=== PATIENT | female | born 1995 | race Caucasian/White ===

== ENCOUNTER 2023-03-28 08:00 | Outpatient (CLI) | payer OTHER ==
[2023-03-28 12:49] LABS: BILIRUBIN,URINE NEGATIVE (NEGATIVE); GLUCOSE, URINE (UA) NEGATIVE (NEGATIVE); KETONES,URINE (UA) NEGATIVE (NEGATIVE); LEUKOCYTE ESTERASE, URINE TRACE (NEGATIVE); NITRITE,URINE NEGATIVE (NEGATIVE); OCCULT BLOOD,URINE NEGATIVE (NEGATIVE); PH,URINE 5.5 PH (5.0-7.5); PROTEIN,URINE NEGATIVE (NEGATIVE); UROBILINOGEN,URINE 1 (NORMAL) E.U./dL (NORMAL)
[2023-03-28 12:59] LABS: CLARITY,URINE CLOUDY (CLEAR)
[2023-03-28 13:00] LABS: BACTERIA,URINE Many /HPF (None Seen); RBC,URINE 0-5 /HPF (0-5); SQUAMOUS EPITHELIAL CELL,UR RARE Squamous (<= Few); WBC,URINE 0-3 /HPF (0-5)
== END 2023-03-28 23:59 | disposition home or self-care (01) ==
LOC: LAB.WC 08:00
PROVIDERS: ATTEND Obstetrics & Gynecology
DX: Z34.90 Encounter for supervision of normal pregnancy, unspecified, unspecified trimester (principal)
CPT/HCPCS: 81001; 87086

== ENCOUNTER 2023-04-01 13:57 | Outpatient (CLI) | payer OTHER ==
[2023-04-01 14:45] LABS: BASOPHILS % (AUTO) 0.2 %; EOSINOPHILS # (AUTO) 0.1 10^3/uL (0.0-0.7); EOSINOPHILS % (AUTO) 0.9 %; HCT - HEMATOCRIT 38.5 % (37.0-47.0); HGB - HEMOGLOBIN 13.3 g/dL (12.0-16.0); LYMPHOCYTES # (AUTO) 1.9 10^3/uL (1.5-3.5); LYMPHOCYTES % (AUTO) 23.1 %; MEAN CORPUSCULAR HEMOGLOBIN 28.7 pg (27.0-31.0); MEAN CORPUSCULAR HGB CONC 34.5 g/dL (32.0-36.0); MEAN CORPUSCULAR VOLUME 83.2 fL (81.0-99.0); MEAN PLATELET VOLUME 10.5 fL (7.9-10.8); MONOCYTES # (AUTO) 0.4 10^3/uL (0.0-1.0); MONOCYTES % (AUTO) 4.8 %; NEUTROPHILS # (AUTO) 5.8 10^3/uL (1.5-6.6); NEUTROPHILS % (AUTO) 70.5 %; PLT - PLATELET COUNT 266 10^3/uL (130-450); RED BLOOD COUNT 4.63 10^6/uL (4.20-5.40); RED CELL DISTRIBUTION WIDTH 13.8 % (12.0-15.0); WHITE BLOOD COUNT 8.2 x10^3/uL (4.8-10.8)
--- NOTE | 2023-04-01 16:09 | Ultrasound Report ---
PROCEDURE: OB First Trimester INDICATIONS: POSITIVE TEST OUTSIDE/PRIOR DATING DATA: Last menstrual period (LMP): 01/17/2023. LMP-based estimated date of delivery (LOULOU): 10/24/2023. First dating scan (date and location): Today 04/01/2023. Estimated date of delivery (LOULOU) from first dating scan: 10/22/2023. TECHNIQUE: Real-time scanning was performed of the fetus and maternal pelvic organs, with image documentation. COMPARISON: None FINDINGS: Heart rate is 169 bpm. [place]-rump length is 4 cm. Ultrasound age is 10 weeks and 6 days. Adnexal stru ctures within normal limits. IMPRESSION: Living intrauterine gestation at an ultrasound age of 10 weeks and 6 days, concordant with reported L MP. Reviewed by: Ian Ryan MD on 04/01/2023 4:08 PM PDT Approved by: Ian Ryan MD on 04/01/2023 4:08 PM PDT Station ID: [id number]
[2023-04-02 03:10] LABS: HBsAG SCREEN Negative (Negative); HCV AB Non Reactive (Non Reactive); HIV SCREEN 4TH GENERATION Non Reactive (Non Reactive)
[2023-04-02 08:10] LABS: RPR Non Reactive (Non Reactive)
[2023-04-02 12:09] LABS: VARICELLA-ZOSTER AB IGG 554 index (Immune >165)
== END 2023-04-01 13:58 | disposition home or self-care (01) ==
LOC: DI 13:57
PROVIDERS: ATTEND Obstetrics & Gynecology
DX: Z34.91 Encounter for supervision of normal pregnancy, unspecified, first trimester (principal)
CPT/HCPCS: 36415; 85025; 86592; 86762; 86787; 86803; 86850; 86900; 86901; 87340; 87389

== ENCOUNTER 2023-04-15 08:00 | Outpatient (CLI) | payer OTHER ==
[2023-04-15 19:12] LABS: CHLAMYDIA TRACHOMATIS DNA NEGATIVE (NEGATIVE); NEISSERIA GONORRHOEAE DNA NEGATIVE (NEGATIVE); TRICHOMONAS VAGINALIS DNA NEGATIVE (NEGATIVE)
== END 2023-04-15 23:59 | disposition home or self-care (01) ==
LOC: LAB.WC 08:00
PROVIDERS: ATTEND Obstetrics & Gynecology
DX: Z11.3 Encounter for screening for infections with a predominantly sexual mode of transmission (principal)
CPT/HCPCS: 87491; 87591; 87661

== ENCOUNTER 2023-04-24 09:46 | Outpatient (CLI) | payer OTHER ==
[2023-04-24 10:19] LABS: ALBUMIN/GLOBULIN RATIO 1.3 (1.0-2.2); BILIRUBIN,TOTAL 0.4 mg/dL (0.2-1.0); CALCIUM 9.3 mg/dL (8.5-10.3); CREATININE 0.6 mg/dL (0.6-1.3); POTASSIUM 4.1 mmol/L (3.5-4.5); TOTAL PROTEIN 7.2 g/dL (6.4-8.9); URIC ACID 3.7 mg/dL (2.3-6.6)
[2023-04-24 10:20] LABS: CREATININE,URINE 265.8 mg/dL; PROTEIN/CREATININE RATIO,URINE 0.1 (<=0.2)
[2023-04-24 10:39] LABS: FERRITIN 27.9 ng/mL (11.0-306.8)
== END 2023-04-24 09:47 | disposition home or self-care (01) ==
LOC: LAB 09:46
PROVIDERS: ATTEND Obstetrics & Gynecology
DX: O99.011 Anemia complicating pregnancy, first trimester (principal); Z87.59 Personal history of other complications of pregnancy, childbirth and the puerperium; O99.210 Obesity complicating pregnancy, unspecified trimester
CPT/HCPCS: 36415; 80053; 82570; 82728; 84156; 84550

== ENCOUNTER 2023-04-29 02:23 | Observation (INO) | payer OTHER ==
--- NOTE | 2023-04-29 03:15 | ED Physician Documentation ---
PD HPI ABD PAIN - Stated complaint Stated Complaint: FEMALE - Chief complaint Chief Complaint: Abd Pain - History obtained from History obtained from: Patient - Additional information Additional information: HPI from patient. Patient c/o upper abdominal pain that woke her from sleep at approximately 1 AM this morning. She says she only had one similar episode in the past, few weeks ago but brief and self-limited and thus did not seek medical attention. This pain is RUQ and epigastric, radiates to back. Nausea but no vomiting. There are no ameliorating nor exacerbating factors. Patient is 15 weeks ; has had US in this showing single living IUP 10w6d (04/01/23). Denies vaginal bleeding, denies pelvic pain/cramping. Review of Systems Constitutional: denies: Fever, Chills, Sweats Cardiac: reports: Reviewed and negative Respiratory: reports: Reviewed and negative GI: reports: Abdominal Pain, Nausea. denies: Vomiting, Constipation, Diarrhea : reports: Now EGA (15 weeks). denies: Dysuria, Frequency, Vaginal bleeding Musculoskeletal: reports: Back pain (anterior abdominal pain radiates to back (though not back pain per se)) PD PAST MEDICAL HISTORY - Past Medical History Past Medical History: No Cardiovascular: Hypertension - Past Surgical History Past Surgical History: Yes HEENT: Tonsil/Adenoidectomy - Present Medications Home Medications: Ambulatory Orders Medication Instructions Recorded Confirmed Ondansetron HCl 4 mg PO PRN 04/29/23 - Allergies Allergies/Adverse Reactions: Allergies Allergy/AdvReac Type Severity Reaction Status Date / Time No Known Drug Allergies Allergy Verified 04/29/23 02:41 PD ED PE NORMAL - Vitals Vital signs reviewed: Yes - General General: Alert and oriented X 3, Well developed/nourished, Other (appears to be in obvious moderate painful distress) - HEENT HEENT: Moist mucous membranes - Neck Neck: Supple, no meningeal sign - Cardiac Cardiac: RRR, No murmur - Respiratory Respiratory: No respiratory distress, Clear bilaterally - Abdomen Abdomen: Soft - Back Back: No CVA TTP - Derm Derm: Normal color, Warm and dry PD ED PE EXPANDED - Abdomen Abdomen: Tender to palpation (RUQ and epigastrium without rebound or guarding) Results - Vitals Vitals: Vital Signs - 24 hr 04/29/23 04/29/23 04/29/23 02:35 03:00 03:24 Temperature 36.6 C Heart Rate 102 H 91 Respiratory 32 H 24 24 Rate Blood Pressure 127/79 98/54 L O2 Saturation 100 94 96 04/29/23 04/29/23 04/29/23 04:30 05:00 05:30 Temperature Heart Rate 84 76 81 Respiratory 26 H 26 H 24 Rate Blood Pressure 108/66 105/69 105/69 O2 Saturation 95 97 96 04/29/23 06:30 Temperature Heart Rate 78 Respiratory 28 H Rate Blood Pressure 102/68 O2 Saturation 94 Oxygen O2 Source Room air - Labs Labs: Laboratory Tests 04/29/23 04/29/23 04/29/23 03:37 03:37 05:10 WBC 12.1 H RBC 4.40 Hgb 12.4 Hct 37.6 MCV 85.5 MCH 28.2 MCHC 33.0 RDW 14.1 Plt Count 247 MPV 10.5 Neut # (Auto) 9.7 H Lymph # (Auto) 1.8 [place] # (Auto) 0.6 Eos # (Auto) 0.1 Baso # (Auto) 0.0 Absolute Nucleated RBC 0.00 Nucleated RBC % 0.0 Sodium 134 L Potassium 3.6 Chloride 103 Carbon Dioxide 25 Anion Gap 6.0 BUN 5 L Creatinine 0.5 L Estimated GFR (MDRD) 149 Glucose 125 H Calcium 9.2 Total Bilirubin 0.6 AST 69 H ALT 25 Alkaline Phosphatase 99 Total Protein 6.8 Albumin 3.8 Globulin 3.0 Albumin/Globulin Ratio 1.3 Lipase 206 H Urine Color YELLOW Urine Clarity CLEAR Urine pH 6.0 Ur Specific [place] 1.015 Urine Protein NEGATIVE Urine Glucose (UA) NEGATIVE Urine Ketones NEGATIVE Urine Occult Blood NEGATIVE Urine Nitrite NEGATIVE Urine Bilirubin NEGATIVE Urine Urobilinogen 2 H Ur Leukocyte Esterase NEGATIVE Ur Microscopic Review NOT INDICATED Urine Culture Comments NOT INDICATED PD Medical Decision Making - ED course Complexity details: reviewed results, re-evaluated patient, considered differential, d/w patient ED course: Mild leukocytosis on CBC (WBC 12.1). Normal LFTs except minimally elevated AST (69). Lipase is notably elevated (206). She is given 4mg IV morphine sulfate, 1 liter NS, and 4mg IV zofran; this resulted in improvement in symptoms (per patient as well as appearance), but pain gradually returned and thus given another dose of 4mg IV morphine sulfate. US of RUQ is ordered but will not be available until after end of my shift and thus care of patient is turned over to oncoming ED physician (Dr. Dominique) pending results and reevaluation. Departure - Departure Forms: PCP List
[2023-04-29] MEDS ORDERED: ONDANSETRON 4 MG/2 ML VIAL IVP STA (03:27)
[2023-04-29] MEDS ORDERED: MORPHINE 2 MG/ML CARPUJECT IVP STA ×3 (03:27→08:17)
[2023-04-29 03:44] LABS: BASOPHILS % (AUTO) 0.2 %; EOSINOPHILS # (AUTO) 0.1 10^3/uL (0.0-0.7); EOSINOPHILS % (AUTO) 0.6 %; HCT - HEMATOCRIT 37.6 % (37.0-47.0); HGB - HEMOGLOBIN 12.4 g/dL (12.0-16.0); LYMPHOCYTES # (AUTO) 1.8 10^3/uL (1.5-3.5); LYMPHOCYTES % (AUTO) 14.6 %; MEAN CORPUSCULAR HEMOGLOBIN 28.2 pg (27.0-31.0); MEAN CORPUSCULAR VOLUME 85.5 fL (81.0-99.0); MEAN PLATELET VOLUME 10.5 fL (7.9-10.8); MONOCYTES # (AUTO) 0.6 10^3/uL (0.0-1.0); MONOCYTES % (AUTO) 4.7 %; NEUTROPHILS # (AUTO) 9.7 10^3/uL (1.5-6.6); NEUTROPHILS % (AUTO) 79.6 %; PLT - PLATELET COUNT 247 10^3/uL (130-450); RED CELL DISTRIBUTION WIDTH 14.1 % (12.0-15.0); WHITE BLOOD COUNT 12.1 x10^3/uL (4.8-10.8)
[2023-04-29 03:58] LABS: ALBUMIN 3.8 g/dL (3.2-5.5); ALBUMIN/GLOBULIN RATIO 1.3 (1.0-2.2); BILIRUBIN,TOTAL 0.6 mg/dL (0.2-1.0); CALCIUM 9.2 mg/dL (8.5-10.3); CREATININE 0.5 mg/dL (0.6-1.3); POTASSIUM 3.6 mmol/L (3.5-4.5); TOTAL PROTEIN 6.8 g/dL (6.4-8.9)
[2023-04-29] MEDS ORDERED: MORPHINE 2 MG/ML CARPUJECT ONE (04:12)
[2023-04-29] MEDS ORDERED: SODIUM CHLORIDE 0.9% 1,000 ML IV STA (04:16)
[2023-04-29 05:21] LABS: BILIRUBIN,URINE NEGATIVE (NEGATIVE); GLUCOSE, URINE (UA) NEGATIVE (NEGATIVE); KETONES,URINE (UA) NEGATIVE (NEGATIVE); LEUKOCYTE ESTERASE, URINE NEGATIVE (NEGATIVE); NITRITE,URINE NEGATIVE (NEGATIVE); OCCULT BLOOD,URINE NEGATIVE (NEGATIVE); PROTEIN,URINE NEGATIVE (NEGATIVE); UROBILINOGEN,URINE 2 E.U./dL (NORMAL)
[2023-04-29 05:23] LABS: CLARITY,URINE CLEAR (CLEAR)
[2023-04-29] MEDS ORDERED: PANTOPRAZOLE 40 MG VIAL IVP STA (08:43)
[2023-04-29] MEDS ORDERED: GI COCKTAIL 120 ML BOTTLE PO PRN (08:44)
--- NOTE | 2023-04-29 09:06 | Ultrasound Report ---
PROCEDURE: Abdomen Limited INDICATIONS: RUQ pain TECHNIQUE: Real-time focused scanning was performed of the abdomen, with image documentation. COMPARISONS: OB ultrasound 04/01/2023 FINDINGS: Liver: Liver is normal in size and homogeneous in echotexture. Gallbladder: Sludge versus small stones within the gallbladder. No gallbladder wall thickening or per icholecystic fluid. Negative sonographic Lee's, however patient is on pain medication. Biliary ducts: Intrahepatic bile ducts are non-dilated. Extrahepatic bile duct caliber measures 5.4 mm. Normal is 6-7 mm or less in diameter, or 10 mm or less post-cholecystectomy. Pancreas: Visualized portions of the pancreas are sonographically normal. Right kidney: Normal in size and echotexture. Right kidney measures 10.1 cm long. No hydronephrosis or nephrolithiasis. No solid masses. No complex renal cystic lesions which require follow-up. Aorta: Visualized proximal aorta is normal in caliber at less than 3 cm. Single live intrauterine with heart rate of 137 bpm. IMPRESSION: 1.Sludge versus small stones within the gallbladder without gallbladder wall thickening or pericholec ystic fluid. Negative sonographic Lee's sign, however patient was premedicated. 2.Single live intrauterine . Reviewed by: Dennis Augustin MD on 04/29/2023 9:04 AM PDT Approved by: Dennis Augustin MD on 04/29/2023 9:04 AM PDT Station ID: [id number]
[2023-04-29] MEDS ORDERED: ONDANSETRON 4 MG/2 ML VIAL IVP PRN (09:22)
[2023-04-29] MEDS ORDERED: SODIUM CHLORIDE FLUSH 0.9% 10 ML SYRINGE IVP PRN (09:22)
--- NOTE | 2023-04-29 09:43 | HISTORY & PHYSICAL EXAMINATION ---
Chief Complaint - Chief Complaint Chief Complaint: Abdominal pain History of Present Illness - Admitted From Admitted From:: ED - History of Present Illness HPI Comment/Other: Neville was awakened at 0100 today with mid-epigastric pain, constant, severe, non-radiation with associated nausea. She took some Tylenol but there was no relief. She was brought to the ED and was found to have a slightly elevated Lipase. US confirmed sludge and tiny gallstones. Her pain was poorly managed with IV morphine and I was asked to admit her for pain control of her presumed gallstone pancreatitis. Rad is 15 months and is followed by our OB service. History - Past Medical History Cardiovascular: reports: Hypertension MRSA Hx?: No - Past Surgical History HEENT: reports: Tonsil/Adenoidectomy - Family & Social History Living arrangement: At home - Substance History Use: Uses substance without health or social issues: NONE Abuse: Recurrent use of substance despite neg consequences: NONE - POLST Patient has POLST: No POLST Status: Full Code Meds/Allgy - Home Medications Home Medications: Ambulatory Orders Medication Instructions Recorded Confirmed Ondansetron HCl 4 mg PO PRN 04/29/23 - Allergies Allergies/Adverse Reactions: Allergies Allergy/AdvReac Type Severity Reaction Status Date / Time No Known Drug Allergies Allergy Verified 04/29/23 02:41 Review of Systems - Gastrointestinal Gastrointestinal: reports: Abdominal pain, Nausea Exam - Vital Signs Reviewed Vital Signs: Yes Vital Signs: Vital Signs x48h Temp Pulse Resp BP Pulse Ox 04/29/23 09:00 208.6 F H 87 16 104/77 98 04/29/23 06:30 78 28 H 102/68 94 04/29/23 05:30 81 24 105/69 96 04/29/23 05:00 76 26 H 105/69 97 04/29/23 04:30 84 26 H 108/66 95 04/29/23 03:24 24 96 04/29/23 03:00 91 24 98/54 L 94 04/29/23 02:35 97.8 F 102 H 32 H 127/79 100 - Physical Exam General Appearance: positive: Alert, Mild distress Eyes Bilateral: positive: Normal inspection, No scleral icterus ENT: positive: ENT inspection nml, Pharynx nml Neck: positive: Nml inspection, Thyroid nml, Trachea midline Respiratory: positive: No respiratory distress, Breath sounds nml Cardiovascular: positive: Regular rate & rhythm, No murmur Peripheral Pulses: positive: 2+ Abdomen: positive: Nml bowel sounds, Other (Mild epigastric tenderness to palpation; minimal distension) Skin: positive: Color nml, No rash, Warm Extremities: positive: Non-tender Neurologic/Psychiatric: positive: Oriented x3 Conclusion/Plan - Lab Results Fish Bones: 04/29/23 03:37 04/29/23 03:37 - Other Other Results/Comments: Images: US - Non-distended or inflamed gallbladder with sludge and tiny stones. CBD 5.4 mm Assessment: 1) Abdominal pain, probably due to gallstone pancreatitis; Possible gastritis 2) , 15 weeks 3) Headaches Plan: 1) Admit for pain control and monitoring of her serum lipase 2) NPO except sips and chips 3) Possible lap [place] in am once lipase elevation decreases Tad Zarate MD General Surgery Service
--- NOTE | 2023-04-29 09:46 | ED Physician Documentation ---
ED Addendum - Addendum Addendum: 04/29/23 09: Patient 28-year-old female presenting to the emergency department with e pigastric and right upper quadrant abdominal pain in setting of early Second trimester . Labs reviewed demonstrate mild elevation in lipase, AST and urobilinogen. No other leukocytosis. Patient remains in persistent pain with multiple request for pain medication. Ultrasonography positive for gallstones versus biliary sludge but no pericholecystic fluid, gallbladder wall thickening or other indication of acute cholecystitis. Care discussed with general surgery. Given Protonix and GI cocktail. Given persistent pain presentation is highly concerning forGallstone pancreatitis. Graciously general surgery agrees to admit the patient for further evaluation and treatment. 04/29/23 09:47 04/29/23 17:46
[2023-04-29] MEDS: LACTATED RINGERS 1,000 ML IV SCH ×2 (10:36→19:04)
[2023-04-29] MEDS: HYDROmorphone 0.5 MG/0.5 ML SYRINGE IVP PRN ×4 (11:15→18:12)
--- NOTE | 2023-04-29 12:25 | PHARMACY PROGRESS NOTE ---
- Best Possible Medication History Admit Date and Time: 04/29/23921 Processed by: Pharmacy Medication History completed: Yes Patient Interview: Completed Secondary Source(s): Pharmacy records As the person ultimately responsible for medication therapy, providers are able to order a medication from an existing home medication list in [facility] via the "Reconcile Routine" prior to Confirmation of that medication by application support lead. Such practice is discouraged except when the physician, in their clinical judgment, deems that a medical need exists for a medication without regard to previous use.
--- NOTE | 2023-04-29 14:42 | PROVIDER PROGRESS NOTE ---
Progress Note General Surgery Progress Note Neville is much more comfortable. She is tolerating ice chips and her pain is under better control. I discussed with her the diagnosis of gallstone pancreatitis and will explain to her the surgical procedure later this afternoon. Surgery tomorrow is a possibility if her pancreatitis continues to resolve. Tad Zarate MD General Surgery Service
--- NOTE | 2023-04-29 15:26 | PROVIDER PROGRESS NOTE ---
Progress Note General Surgery Progress Note Neville has clinical, lap and US evidence of gallstone pancreatitis. She is 15 weeks . Her symptoms have improved with medical management and I have recommended cholecystectomy to prevent future episodes of pancreatitis which would be of risk to her and her unborn child. She will have heart tones recorded immediately prior to the procedure which is tentatively scheduled for tomorrow mid-morning. Consent Neville Gonzalez has been counseled for the procedure (Laparoscopic cholecystectomy, possible open cholecystectomy under GETA), it's indications, risks, benefits and expected outcome as well as alternative therapies. We specifically discussed risks to her and her associated with anesthesia, bleeding, infection, injury to surrounding structures which may require additional surgery, and the possible need for conversion to an open procedure. We also discussed the possible need for a blood transfusion with its risks and benefits. Neville understands, agrees, and consents to the proposed operative strategy and requests that we proceed with the procedure as outlined in our discussion. Tad Zarate MD General Surgery Service
[2023-04-29] MEDS: SODIUM CHLORIDE FLUSH 0.9% 10 ML SYRINGE IVP SCH ×2 (16:14→23:58)
--- NOTE | 2023-04-29 18:21 | PROVIDER PROGRESS NOTE ---
Progress Note General Surgery Progress Note I was called by the nursing staff because Neville complains that the IV Dilaudid does not last long enough to control her abdominal pain. In addition, she becomes nauseated when it is administered but the Zofran doesn't work well, either. She declines to take Reglan or Phenergan. As Compazine may have teratogenics effect on the unborn baby, I do not believe it is prudent to begin this anti-emetic. Perhaps by limiting her use of IV Dilaudid, we can avoid the associated nausea. Instead, for longer pain control, I have ordered Oxycodone, 5 mg PO Q hrs prn to compliment her Acetaminophen. I can find no studies to indicate that this will have adverse effects regarding the . If this is not effective, I will consider adding Ketorolac. This drug can cause premature closure of the ductus arterious (along with other adverse effects of ) after 20 weeks of gestation so there is still a window of safety in which it could be used. Tad Zarate MD General Surgery Service
[2023-04-29] MEDS: oxyCODONE 5 MG TABLET PO PRN (19:03)
[2023-04-29] MEDS: ACETAMINOPHEN 325 MG TABLET PO PRN (19:04)
[2023-04-30] MEDS: oxyCODONE 5 MG TABLET PO PRN ×3 (02:18→16:03)
[2023-04-30] MEDS: LACTATED RINGERS 1,000 ML IV SCH ×3 (02:21→17:57)
[2023-04-30 05:15] LABS: BASOPHILS % (AUTO) 0.3 %; EOSINOPHILS # (AUTO) 0.1 10^3/uL (0.0-0.7); HGB - HEMOGLOBIN 11.2 g/dL (12.0-16.0); LYMPHOCYTES % (AUTO) 29.5 %; MEAN CORPUSCULAR HEMOGLOBIN 28.6 pg (27.0-31.0); MEAN CORPUSCULAR HGB CONC 32.9 g/dL (32.0-36.0); MEAN CORPUSCULAR VOLUME 86.7 fL (81.0-99.0); MEAN PLATELET VOLUME 10.8 fL (7.9-10.8); MONOCYTES # (AUTO) 0.4 10^3/uL (0.0-1.0); MONOCYTES % (AUTO) 5.8 %; NEUTROPHILS # (AUTO) 4.3 10^3/uL (1.5-6.6); NEUTROPHILS % (AUTO) 62.8 %; PLT - PLATELET COUNT 212 10^3/uL (130-450); RED BLOOD COUNT 3.92 10^6/uL (4.20-5.40); RED CELL DISTRIBUTION WIDTH 14.4 % (12.0-15.0); WHITE BLOOD COUNT 6.9 x10^3/uL (4.8-10.8)
[2023-04-30 05:27] LABS: POTASSIUM 3.5 mmol/L (3.5-4.5)
[2023-04-30 05:28] LABS: ALBUMIN 3.3 g/dL (3.2-5.5); ALBUMIN/GLOBULIN RATIO 1.3 (1.0-2.2); BILIRUBIN,TOTAL 0.5 mg/dL (0.2-1.0); CALCIUM 8.7 mg/dL (8.5-10.3); CREATININE 0.5 mg/dL (0.6-1.3); TOTAL PROTEIN 5.8 g/dL (6.4-8.9)
--- NOTE | 2023-04-30 07:22 | PROVIDER PROGRESS NOTE ---
Progress Note General Surgery Progress Note S: Feels a bit better; Sometimes nauseated; Pain under good control O: VSS afeb; Lungs clear; Heart NSR; Abd - soft, non-tender; Labs: WBC 6.9; H&H 11.2/39 Lipase 22 LFT's normal; T Bili normal A: Gallstone pancreatitis - resolved P: Laparoscopic cholecystectomy, possible open cholecystectomy today. Tad Zarate MD General Surgery Service
[2023-04-30] MEDS ORDERED: fentaNYL 100 MCG/2 ML VIAL ONE ×3 (10:58→13:51)
[2023-04-30] MEDS ORDERED: ROCURONIUM 50 MG/5 ML VIAL ONE ×2 (10:58→12:41)
[2023-04-30] MEDS ORDERED: PROPOFOL 200 MG/20 ML VIAL IVP ONE (10:58)
[2023-04-30] MEDS ORDERED: LIDOCAINE-PF 2% 10 ML AMP SUBQ ONE (10:58)
[2023-04-30] MEDS: ACETAMINOPHEN 325 MG TABLET PO PRN ×3 (11:29→23:29)
--- NOTE | 2023-04-30 11:38 | ANESTHESIA ---
Pre-Anesthesia VS, & Labs - Diagnosis acute cholecytitis, 2nd trimester - Procedure laparoscopic cholecystectomy Vital Signs: Temp Pulse Resp BP Pulse Ox O2 Flow Rate 36.9 C 87 16 94/61 99 04/30/23 11:20 04/30/23 11:20 04/30/23 11:20 04/30/23 11:20 04/30/23 11:20 Height: 5 ft 4 in Weight (kg): 110 kg Body Mass Index: 41.6 BMI Classification: Morbidly Obese - NPO >8 hours - Is Patient ?: Yes - Lab Results Current Lab Results: Laboratory Tests 04/30/23 04:44: Sodium 135, Potassium 3.5, Chloride 106, Carbon Dioxide 24, Anion Gap 5.0 L, BUN 3 L, Creatinine 0.5 L, Estimated GFR (MDRD) 149, Glucose 91, Calcium 8.7, Total Bilirubin 0.5, AST 34, ALT 27, Alkaline Phosphatase 99, Total Protein 5.8 L, Albumin 3.3, Globulin 2.5, Albumin/Globulin Ratio 1.3, Lipase 22 04/30/23 04:44: WBC 6.9, RBC 3.92 L, Hgb 11.2 L, Hct 34.0 L, MCV 86.7, MCH 28.6, MCHC 32.9, RDW 14.4, Plt Count 212, MPV 10.8, Neut # (Auto) 4.3, Lymph # (Auto) 2.0, [place] # (Auto) 0.4, Eos # (Auto) 0.1, Baso # (Auto) 0.0, Absolute Nucleated RBC 0.00, Nucleated RBC % 0.0 04/29/23 03:37: Sodium 134 L, Potassium 3.6, Chloride 103, Carbon Dioxide 25, Anion Gap 6.0, BUN 5 L, Creatinine 0.5 L, Estimated GFR (MDRD) 149, Glucose 125 H, Calcium 9.2, Total Bilirubin 0.6, AST 69 H, ALT 25, Alkaline Phosphatase 99, Total Protein 6.8, Albumin 3.8, Globulin 3.0, Albumin/Globulin Ratio 1.3, Lipase 206 H 04/29/23 03:37: WBC 12.1 H, RBC 4.40, Hgb 12.4, Hct 37.6, MCV 85.5, MCH 28.2, MCHC 33.0, RDW 14.1, Plt Count 247, MPV 10.5, Neut # (Auto) 9.7 H, Lymph # (Auto) 1.8, [place] # (Auto) 0.6, Eos # (Auto) 0.1, Baso # (Auto) 0.0, Absolute Nucleated RBC 0.00, Nucleated RBC % 0.0 Lab results reviewed: Yes Fish Bones: 04/30/23 04:44 04/30/23 04:44 Home Medications and Allergies Home Medications: Ambulatory Orders Aspirin EC [Ecotrin] 1 tab PO DAILY 04/29/23 NIFEdipine [Nifedipine ER] 1 tab PO DAILY 04/29/23 Ondansetron HCl 4 mg PO DAILY PRN 04/29/23 Pnv No.95/Ferrous Fum/Folic AC [ Tablet] 1 tab PO DAILY 04/29/23 Active Medications Acetaminophen (Acetaminophen 325 Mg Tablet) 650 mg PO Q4HR PRN PRN Reason: Pain 1 to 4, or Fever Last Admin: 04/30/23 11:29 Dose: 650 mg Hydromorphone HCl (Hydromorphone 0.5 Mg/0.5 Ml Syringe) 0.5 mg IVP Q2H PRN PRN Reason: Pain 8 to 10 Last Admin: 04/29/23 18:12 Dose: 0.5 mg Lactated Ringer's (Lr) 1,000 mls @ 125 mls/hr IV .Q8H JUNO Last Admin: 04/30/23 11:29 Dose: 125 mls/hr Multi-Ingredient Mouthwash/Gargle (Gi Cocktail 120 Ml Bottle) 30 ml PO Q4H PRN PRN Reason: Abdominal Pain Last Admin: 04/29/23 09:26 Dose: 30 ml Ondansetron HCl (Ondansetron 4 Mg/2 Ml Vial) 4 mg IVP Q6HR PRN PRN Reason: Nausea / Vomiting Last Admin: 04/29/23 13:54 Dose: 4 mg Oxycodone HCl (Oxycodone 5 Mg Tablet) 5 mg PO Q4HR PRN PRN Reason: Moderate Pain (Level 4-6) Last Admin: 04/30/23 10:29 Dose: 5 mg Sodium Chloride (Sodium Chloride Flush 0.9% 10 Ml Syringe) 10 ml IVP PRN PRN PRN Reason: NEEDED PER PROVIDER ORDERS Last Admin: 04/29/23 18:12 Dose: 10 ml Sodium Chloride (Sodium Chloride Flush 0.9% 10 Ml Syringe) 10 ml IVP 01 00,0900,1700 JUNO Last Admin: 04/29/23 23:58 Dose: Not Given Aspirin EC [Ecotrin] 1 tab PO DAILY 04/29/23 NIFEdipine [Nifedipine ER] 1 tab PO DAILY 04/29/23 Ondansetron HCl 4 mg PO DAILY PRN 04/29/23 Pnv No.95/Ferrous Fum/Folic AC [ Tablet] 1 tab PO DAILY 04/29/23 Allergies/Adverse Reactions: Allergies Allergy/AdvReac Type Severity Reaction Status Date / Time metoclopramide AdvReac Anxiety Verified 04/29/23 14:38 Anes History & Medical History - Anesthetic History Anesthesia Complications: reports: No previous complications Family history of Anesthesia Complications: Denies Family history of Malignant Hyperthermia: Denies - Medical History Cardiovascular: reports: Hypertension Pulmonary: reports: None Gastrointestinal: reports: None Urinary: reports: None Neuro: reports: Headaches Musculoskeletal: reports: None Endocrine/Autoimmune: reports: None Blood Disorders: reports: Anemia Skin: reports: Eczema, Rosacea Smoking Status: Never smoker - Surgical History Eyes Ears Nose Throat (EENT): reports: Tonsil/Adenoidectomy Exam General: Alert, Oriented x3, Cooperative Dental: WNL Mouth Openin Fingerbreadth Neck Mobility: Normal Mallampati classification: II Thyromental Distance: 4-6 cm Respiratory: Lungs clear, Normal breath sounds, No respiratory distress Cardiovascular: Regular rate Neurological: Normal speech Mental/Cognitive Status: Alert/Oriented X3, Normal for patient Cognitive Status: Within normal limits Plan Anesthesia Type: General Consent for Procedure(s) Verified and Reviewed: Yes Code Status: Attempt Resuscitation ASA classification: 2-Mild systemic disease Is this case an emergency?: No
[2023-04-30] MEDS ORDERED: BUPIVACAINE 0.25% PF 30 ML VIAL ONE (11:47)
[2023-04-30] MEDS ORDERED: LIDOCAINE 1%-EPI 1:100000 20 ML MDV ONE (11:47)
[2023-04-30] MEDS ORDERED: fentaNYL 100 MCG/2 ML VIAL IVP PRN (11:51)
[2023-04-30] MEDS ORDERED: NALOXONE 0.4 MG/ML VIAL IVP PRN (11:51)
[2023-04-30] MEDS ORDERED: ONDANSETRON 4 MG/2 ML VIAL IVP PRN (11:51)
[2023-04-30] MEDS ORDERED: ATROPINE ABBOJECT 1 MG/10 ML SYRINGE IVP PRN (11:51)
[2023-04-30] MEDS ORDERED: HYDROmorphone 0.5 MG/0.5 ML SYRINGE IVP PRN (11:51)
[2023-04-30] MEDS ORDERED: MORPHINE 2 MG/ML CARPUJECT IVP PRN (11:51)
[2023-04-30] MEDS ORDERED: ePHEDrine 50 MG/ML VIAL IVP PRN (11:51)
[2023-04-30] MEDS ORDERED: LACTATED RINGERS 1,000 ML IV SCH (12:00)
[2023-04-30] MEDS ORDERED: ceFAZolin 1 GM VIAL ONE (12:19)
[2023-04-30] MEDS ORDERED: ONDANSETRON 4 MG/2 ML VIAL ONE ×2 (12:28→13:51)
[2023-04-30] MEDS ORDERED: LIDOCAINE 1%-EPI 1:100000 20 ML MDV SUBQ ONE ×3 (12:35)
[2023-04-30] MEDS ORDERED: BUPIVACAINE 0.25% PF 30 ML VIAL SUBQ ONE ×3 (12:37)
[2023-04-30] MEDS ORDERED: GLYCOPYRROLATE 1 MG/5 ML VIAL ONE (13:15)
[2023-04-30] MEDS ORDERED: NEOSTIGMINE 1 MG/1 ML 10 ML MDV ONE (13:15)
[2023-04-30] MEDS ORDERED: LACTATED RINGERS 1,000 ML IV ONE (13:25)
[2023-04-30] MEDS ORDERED: SODIUM CHLORIDE FLUSH 0.9% 10 ML SYRINGE IVP PRN (13:37)
[2023-04-30] MEDS ORDERED: fentaNYL 100 MCG/2 ML VIAL IVP ONE (13:49)
--- NOTE | 2023-04-30 13:51 | OPERATIVE REPORT ---
Operative Report - General Admit Date: 04/29/23 - Other Other Information/Narrative: PROCEDURE DATE: 04/30/2023 PREOPERATIVE DIAGNOSIS: Ms. Gonzalez is a 28 year old female who is 15 weeks who has clinical, x-ray, and laboratory findings consistent with gallstone pancreatitis. The pancreatitis has resolved and she is being taken to the operating room for laparoscopic cholecystectomy, possible open cholecystectomy. POSTOPERATIVE DIAGNOSIS: Gallstone pancreatitis NAME OF PROCEDURE: Laparoscopic appendectomy (25129) SURGEON: Alexis Zarate MD, FACS FISCAL MANAGER SURGEON: None ANESTHESIA: General endotracheal. ESTIMATED BLOOD LOSS: 5 mL. DRAINS: None SPECIMEN: Gallbladder COMPLICATIONS None FINDINGS: Non-inflamed gallbladder DESCRIPTION OF OPERATION FOLLOWS: After consent for the procedure was obtained, the patient was brought to the operating room where in the supine position, Heart Tones were obtained using doppler ultrasound. General endotracheal anesthesia was administered. A surgical time-out was performed indicating the patient and the procedure to be performed. The abdomen was prepped with chloroprep and draped in a sterile fashion. Pneumoperitoneum was achieved through a subumbilical incision using a Fili can nula and an open technique. Under direct vision, a 10 mm non-cutting laparoscopic port was placed in the sub-xiphoid region and two 5 mm noncutting ports were placed in the right upper quadrant; one in the mid-clavicular line and one in the anterior axillary line. Each of the port sites were infiltrated with 1% Lidocaine with epinephrine in a 50/50 mix with 1/4% Marcaine mixture prior making the incisions. The patient was placed in the steep reverse Trendelenburg position and rolled to the left. Inspection of the right upper quadrant revealed the above noted findings. The gallbladder was grasped on the fundus and retracted superiorly and anteriorly. Adhesions between the gallbladder and omentum were gently teased off the anterior wall of the gallbladder and then the neck of the gallbladder was identified. The neck was grasped and retracted laterally. The cystic duct was identified as it coursed from the gallbladder toward the common duct. The cystic artery was similarly identified. The critical view was visualized and both cystic duct (3 clips) and cystic artery (2 clips) were clipped proximally and distally and transected. The gallbladder was then removed from the liver bed using electrocautery and brought out through the subxiphoid port using an endo-catch device. During the course of the gallbladder retraction, a small rent occurred in the fundus of the gallbladder and bile was spilled into the peritoneal cavity. No stones were lost in the abdominal cavity. The bile was irrigated and aspirated from the peritoneal cavity. Reinspection of the right upper quadrant revealed no evidence of bleeding or bile leakage from the previous dissection site. The right upper quadrant was irrigated with warm sterile saline. The irrigant was aspirated. A search was made for sponges, packs, instruments, and needles. None were found. The sponge, pack, instrument, and needle counts were relayed to me as being correct. The subxiphoid port was closed using a Stanislaw-Kesha device with 0-Vicryl suture. The pneumoperitoneum was the released. There was no evidence of bleeding from the laparoscopic port sleeve sites upon release of the pneumoperitoneum. The subumbilical incision was closed with 2-0 Vicryl for the linea alba. The skin of each of the port sites was closed with interrupted 4-0 Monocryl in a subcuticular fashion with Steri-Strips to reinforce the epidermis. Dressings were placed. The patient tolerated the procedure well and was brought to the recovery room with stable vital signs. heart tones were obtained using doppler ultrasound in the PACU
[2023-04-30] MEDS: SODIUM CHLORIDE FLUSH 0.9% 10 ML SYRINGE IVP SCH ×5 (14:57→23:32)
--- NOTE | 2023-04-30 16:34 | ANESTHESIA POST OP EVALUATION ---
Anesthesia Post Eval - Post Anesthesia Eval Vitals: Last Vital Signs Temp 36.3 C L 04/30/23 16:03 Pulse 91 04/30/23 16:03 Resp 18 04/30/23 16:03 BP 111/64 04/30/23 16:03 Pulse Ox 100 04/30/23 16:03 O2 Flow Rate CV Function Including HR & BP: Stable Pain Control: Satisfactory Nausea & Vomiting: Negative Mental Status: Baseline Respiratory Status: Airway Patent Hydration Status: Satisfactory Anesthesia Complications: None
[2023-05-01] MEDS: LACTATED RINGERS 1,000 ML IV SCH (02:08)
[2023-05-01 05:31] LABS: BASOPHILS % (AUTO) 0.4 %; EOSINOPHILS # (AUTO) 0.1 10^3/uL (0.0-0.7); EOSINOPHILS % (AUTO) 1.1 %; HCT - HEMATOCRIT 34.7 % (37.0-47.0); HGB - HEMOGLOBIN 11.7 g/dL (12.0-16.0); LYMPHOCYTES # (AUTO) 1.9 10^3/uL (1.5-3.5); LYMPHOCYTES % (AUTO) 23.6 %; MEAN CORPUSCULAR HEMOGLOBIN 29.1 pg (27.0-31.0); MEAN CORPUSCULAR HGB CONC 33.7 g/dL (32.0-36.0); MEAN CORPUSCULAR VOLUME 86.3 fL (81.0-99.0); MEAN PLATELET VOLUME 10.5 fL (7.9-10.8); MONOCYTES # (AUTO) 0.5 10^3/uL (0.0-1.0); NEUTROPHILS # (AUTO) 5.5 10^3/uL (1.5-6.6); NEUTROPHILS % (AUTO) 68.6 %; PLT - PLATELET COUNT 229 10^3/uL (130-450); RED BLOOD COUNT 4.02 10^6/uL (4.20-5.40); RED CELL DISTRIBUTION WIDTH 14.4 % (12.0-15.0)
[2023-05-01 05:48] LABS: ALBUMIN 3.3 g/dL (3.2-5.5); ALBUMIN/GLOBULIN RATIO 1.3 (1.0-2.2); BILIRUBIN,TOTAL 0.4 mg/dL (0.2-1.0); CALCIUM 8.9 mg/dL (8.5-10.3); CREATININE 0.5 mg/dL (0.6-1.3); POTASSIUM 3.7 mmol/L (3.5-4.5); TOTAL PROTEIN 5.8 g/dL (6.4-8.9)
--- NOTE | 2023-05-01 07:15 | PROVIDER PROGRESS NOTE ---
Progress Note General Surgery Progress Note Hospital Day # 3 - Gallstone pancreatitis POD # 1, Laparoscopic cholecystectomy ASSESSMENT: 1) S/P lap cholecystectomy for gallstone pancreatitis - progressing well and ready for discharge to home 2) IUP - no perioperative issues PLAN: 1) Discharge to home; FU surgery clinic in 7-10 days or sooner as needed 2) She wants only Tylenol for pain management <><><><><> PERTINENT INTERVAL ISSUES: None S: Feels much better; Minimal port site discomfort; Ambulatory OBJECTIVE: VS: T 97.5; P 90; BP 105/58; 100% RA EXAMINATION: MENTAL STATUS: AAO; Comfortable EYES: Pupils equal, round and reactive to light, sclera anicteric, EARS, NOSE, MOUTH, THROAT: Normal hearing, Oral mucous membranes moist and without lesions; NECK: No crepitus, lymphadenopathy, or thyromegaly LUNGS: Clear to auscultation without wheezing; No use of accessory muscles to breathe CARDIOVASCULAR: Heart-NSR without murmurs; ABD: Soft, non-tender, Port-sites clean and dry; + BS EXTREMITIES: No clubbing, cyanosis, infections SKIN: Anicteric; No rashes, lesions, ulcerations LABS: WBC 8; H&H 11.7/34.7; T Jame 0.1 CULTURES: N/A IMAGING: None today ANTIMICROBIALS: Prophylactic completed PAIN CONTROL: Dilaudid IV prn, Oxycodone PO prn, Acetaminophen VTEP: Chemical: None Mechanical: REBEKAH Zarate MD General Surgery Service
--- NOTE | 2023-05-01 07:27 | Discharge Plan ---
Discharge Plan Problem Reviewed?: Yes Disposition: Home, Self Care Condition: Good Prescriptions: Acetaminophen [Tylenol] 650 mg PO Q4HR PRN #120 tab PRN Reason: Pain 1 to 4, or Fever Diet: Regular Activity Restrictions: Activity as Tolerated Shower Restrictions: No Driving Restrictions: No Instruction Topics: Cholecystectomy Laparoscopic Health Concerns: Continue to follow-up with the OB clinic for your pre-amber care Assessment: No immediate post-procedure issues Additional Instructions or Follow Up instructions: Follow up in the General Surgery Clinic in 7-10 days or sooner as needed No Smoking: If you smoke, Please STOP! Call for help.
[2023-05-01 08:43] VITALS: BP 104/63; O2SAT 99
== END 2023-05-01 09:26 | disposition home or self-care (01) ==
LOC: ED 02:23 → MS2 09:22
PROVIDERS: ADMIT Surgery; ATTEND Surgery
PROC: 0DTJ4ZZ Resection of Appendix, Percutaneous Endoscopic Approach (ICD-10-PCS; principal; 2023-04-30 10:30)
DX: O99.612 Diseases of the digestive system complicating pregnancy, second trimester (principal); K80.10 Calculus of gallbladder with chronic cholecystitis without obstruction; K85.10 Biliary acute pancreatitis without necrosis or infection; Z3A.15 15 weeks gestation of pregnancy; O99.112 Other diseases of the blood and blood-forming organs and certain disorders involving the immune mechanism complicating pregnancy, second trimester; D72.829 Elevated white blood cell count, unspecified; O26.892 Other specified pregnancy related conditions, second trimester; R74.01 Elevation of levels of liver transaminase levels; O99.212 Obesity complicating pregnancy, second trimester; E66.01 Morbid (severe) obesity due to excess calories; O16.2 Unspecified maternal hypertension, second trimester; Z79.82 Long term (current) use of aspirin; Z79.899 Other long term (current) drug therapy
CPT/HCPCS: 36415; 44970; 76705; 80053; 81003; 83690; 85025; 96374; 96375; 96376; 99285; A9270; G0378; J1170; J7120; 81001; 87086

== ENCOUNTER 2023-05-28 08:00 | Outpatient (CLI) | payer OTHER ==
[2023-05-28 17:02] LABS: BILIRUBIN,URINE NEGATIVE (NEGATIVE); GLUCOSE, URINE (UA) NEGATIVE (NEGATIVE); KETONES,URINE (UA) NEGATIVE (NEGATIVE); LEUKOCYTE ESTERASE, URINE NEGATIVE (NEGATIVE); NITRITE,URINE NEGATIVE (NEGATIVE); OCCULT BLOOD,URINE NEGATIVE (NEGATIVE); PH,URINE 6.5 PH (5.0-7.5); PROTEIN,URINE NEGATIVE (NEGATIVE); UROBILINOGEN,URINE 1 (NORMAL) E.U./dL (NORMAL)
[2023-05-28 17:05] LABS: CLARITY,URINE CLEAR (CLEAR)
[2023-05-28 17:08] LABS: BACTERIA,URINE Rare /HPF (None Seen); RBC,URINE 0-5 /HPF (0-5); SQUAMOUS EPITHELIAL CELL,UR FEW Squamous (<= Few); WBC,URINE 0-3 /HPF (0-5)
[2023-05-28 20:06] LABS: BACTERIAL VAGINOSIS DNA NEGATIVE (NEGATIVE); CANDIDA GLABRATA DNA NEGATIVE (NEGATIVE); CANDIDA GROUP DNA NEGATIVE (NEGATIVE); CANDIDA KRUSEI DNA NEGATIVE (NEGATIVE); TRICHOMONAS VAGINALIS DNA NEGATIVE (NEGATIVE)
== END 2023-05-28 23:59 | disposition home or self-care (01) ==
LOC: LAB.WC 08:00
PROVIDERS: ATTEND Obstetrics & Gynecology
DX: N89.8 Other specified noninflammatory disorders of vagina (principal)
CPT/HCPCS: 81001; 81514; 87086

== ENCOUNTER 2023-06-03 08:40 | Outpatient (CLI) | payer OTHER ==
--- NOTE | 2023-06-04 09:40 | Ultrasound Report ---
PROCEDURE: OB Detailed Eval INDICATIONS: OBESITY COMPLICATING OUTSIDE/PRIOR DATING DATA: ast menstrual period (LMP): 01/17/2023. LMP-based estimated date of delivery (LOULOU): 10/24/2023. First dating scan (date and location): Today 04/01/2023; [facility]. Estimated date of delivery (LOULOU) from first dating scan: 10/22/2023. TECHNIQUE: Real-time scanning was performed of the fetus, with image documentation and biometric measurements. COMPARISON: OB ultrasound, 04/01/2023. FINDINGS: General: A single living intrauterine gestation is present. Presentation: Breech Placenta: Placental position is posterior, without previa. Amniotic fluid index: 12.5 cm, with largest pocket 3.8 cm. heart rate: 144 beats per minute. Maternal cervical canal: Closed measuring 4.5 cm long; normal length is 2.5 cm or more. biometrics: Biparietal diameter: 20 weeks 3 days Head circumference: ... 3 days Abdominal circumference: 20 weeks 5 days Femur length: Weeks 3 days Estimated gestational age from initial scan: 19 weeks 6 days Composite gestational age from present scan: 20 weeks 2 days Estimated weight and percentile: 361 g; 83.4% for gestational age. Measurement variability in biometric dating: +/- 10 days from 12-20 weeks gestation, +/- 2 weeks from 20-30 weeks gestation, +/- 3 weeks at 30 weeks gestation or later. Anatomic survey: Neuro: Ventricles are normal at less than 10 mm. Cisterna magna is normal at 3-11 mm. Cerebellum i s normal in size and morphology. Nuchal skin fold: Normal at less than 6 mm between 14 and 20 weeks gestational age. Face: Nose and lips, facial profile are normal. Spine: No evidence for spina bifida. Heart: 4-chambered heart is present, with normal ventricular outflow tracts. Diaphragm: Diaphragm is intact. Stomach: Left-sided stomach is present. Kidneys: No hydronephrosis. Normal is less than 5 mm in 2nd trimester, less than 7 mm in 3rd trimester. Cord: 3 vessel cord has orthotopic insertion. Bladder: Normal in size. Extremities: All 4 extremities are visualized. Incidentally noted is a 1.2 cm corpus luteal cyst in the right ovary. IMPRESSION: 1. A single living IUP with appropriate interval growth. 2. Normal anatomic survey. 3. The committee weight is 83.4% for gestational age. 4. Normal TAVIA. Reviewed by: Wen Hunter MD on 06/04/2023 9:38 AM PDT Approved by: Wen Hunter MD on 06/04/2023 9:38 AM PDT Station ID: [id number]
== END 2023-06-03 08:41 | disposition home or self-care (01) ==
LOC: DI 08:40
PROVIDERS: ATTEND Obstetrics & Gynecology
DX: O99.212 Obesity complicating pregnancy, second trimester (principal); Z3A.20 20 weeks gestation of pregnancy

== ENCOUNTER 2023-07-16 09:11 | Outpatient (CLI) | payer OTHER ==
[2023-07-16 10:21] LABS: HCT - HEMATOCRIT 35.9 % (37.0-47.0); HGB - HEMOGLOBIN 12.1 g/dL (12.0-16.0); MEAN CORPUSCULAR HEMOGLOBIN 29.2 pg (27.0-31.0); MEAN CORPUSCULAR HGB CONC 33.7 g/dL (32.0-36.0); MEAN CORPUSCULAR VOLUME 86.5 fL (81.0-99.0); MEAN PLATELET VOLUME 10.6 fL (7.9-10.8); RED BLOOD COUNT 4.15 10^6/uL (4.20-5.40); RED CELL DISTRIBUTION WIDTH 14.5 % (12.0-15.0); WHITE BLOOD COUNT 11.6 x10^3/uL (4.8-10.8)
== END 2023-07-16 09:12 | disposition home or self-care (01) ==
LOC: LAB 09:11
PROVIDERS: ATTEND Obstetrics & Gynecology
DX: O99.210 Obesity complicating pregnancy, unspecified trimester (principal); O99.011 Anemia complicating pregnancy, first trimester
CPT/HCPCS: 36415; 82950; 85027

== ENCOUNTER 2023-07-23 00:14 | Outpatient (CLI) | payer OTHER ==
[2023-07-23 01:38] LABS: BASOPHILS % (AUTO) 0.3 %; EOSINOPHILS # (AUTO) 0.1 10^3/uL (0.0-0.7); EOSINOPHILS % (AUTO) 0.5 %; HCT - HEMATOCRIT 32.2 % (37.0-47.0); HGB - HEMOGLOBIN 10.9 g/dL (12.0-16.0); LYMPHOCYTES # (AUTO) 2.2 10^3/uL (1.5-3.5); LYMPHOCYTES % (AUTO) 17.6 %; MEAN CORPUSCULAR HEMOGLOBIN 29.4 pg (27.0-31.0); MEAN CORPUSCULAR HGB CONC 33.9 g/dL (32.0-36.0); MEAN CORPUSCULAR VOLUME 86.8 fL (81.0-99.0); MEAN PLATELET VOLUME 10.5 fL (7.9-10.8); MONOCYTES # (AUTO) 0.7 10^3/uL (0.0-1.0); NEUTROPHILS # (AUTO) 9.2 10^3/uL (1.5-6.6); NEUTROPHILS % (AUTO) 74.9 %; PLT - PLATELET COUNT 209 10^3/uL (130-450); RED BLOOD COUNT 3.71 10^6/uL (4.20-5.40); RED CELL DISTRIBUTION WIDTH 14.4 % (12.0-15.0); WHITE BLOOD COUNT 12.3 x10^3/uL (4.8-10.8)
[2023-07-23] MEDS ORDERED: CITRIC ACID/SODIUM CITRATE 15 ML UDC PO ONE ×2 (01:45→01:57)
--- NOTE | 2023-07-23 01:52 | PROVIDER PROGRESS NOTE ---
- HPI Chief Complaint: Pain, non-labor - Plan Plan: Patient is a 28-year-old -1-2-3 presenting to triage for epigastric pain. She went out for Halloween with her children last night and walked a lot, but does not feel that she overexerted herself. She returned home and pain started last night around 10 PM before she was sleeping. She says she rolled out of bed try to get comfortable and took a shower if pain persisted. As she arrived here, pain had subsided, but has since returned. She does have some nausea but no vomiting. No sick contacts. No changes in food or diet. Unsure of last bowel movement, but "yesterday or so." She has good movement, no leaking, no vaginal bleeding. She has no visual changes. She has chronic headaches and has not terribly bothered by this currently. She does have a history of preeclampsia. Past medical history Chronic headaches [place] small Depression Anemia Past surgical history Cholecystectomy Tonsillectomy Social history Denies tobacco, blood, drugs Physical Exam Temp Pulse Resp BP Pulse Ox O2 Flow Rate 98.4 F 109 H 18 98/80 07/23/23 01:40 07/23/23 01:40 07/23/23 01:40 07/23/23 01:40 Constitutional: alert,oriented, well hydrated, well developed, well nourished, appropriate dress. Wave of discomfort in abdomen. Cardiovascular: Regular rate and rhythm. Respiratory: no respiratory distress. Abdomen: Gravid, obese nondistended, no guarding. Epigastric/upper abdominal tenderness to light palpation. No change with deep palpation. No CVA tenderness. Psych: affect and mood appropriate, normal interaction, good eye contact. FHT: 130 beats per baseline, moderate variability, accelerations present, no decelerations. Appropriate for gestational age [place]: Quiescent Assessment and plan Abdominal pain -Does not appear to be anything emergent. Labs are normal. Due to her superficial tenderness without deep aspects, as apect of musculoskeletal pain. -Patient is comfortable going home and will call the office if symptoms worsen. Has an appointment in 2 days. Constipation -Pain does not appear colicky as it comes in waves then subsides. Gave 1 dose of magnesium hydroxide and gave patient expectations of this. Will start stool softeners in addition. -Should aim for regular bowel movements as it sounds like she has constipation at baseline and worsened in . Chronic headaches -Somewhat good control with Tylenol and nifedipine. We will continue current management Nausea -Declines need for medication. Problem with metoclopramide and did not tolerate
[2023-07-23 01:55] LABS: ALBUMIN 3.5 g/dL (3.2-5.5); ALBUMIN/GLOBULIN RATIO 1.3 (1.0-2.2); BILIRUBIN,TOTAL 0.3 mg/dL (0.2-1.0); CALCIUM 8.7 mg/dL (8.5-10.3); CREATININE 0.5 mg/dL (0.6-1.3); POTASSIUM 3.4 mmol/L (3.5-4.5); TOTAL PROTEIN 6.2 g/dL (6.4-8.9)
[2023-07-23 01:58] VITALS: BP 98/80
[2023-07-23] MEDS ORDERED: MAGNESIUM HYDROXIDE 2,400 MG/30 ML UDC PO SCH (03:05)
[2023-07-23 03:18] LABS: CREATININE,URINE 34.4 mg/dL; PROTEIN/CREATININE RATIO,URINE 0.1 (<=0.2)
== END 2023-07-23 03:45 | disposition home or self-care (01) ==
LOC: WFO 00:14 → FBP 00:16 → WFO 03:45
PROVIDERS: ATTEND Obstetrics & Gynecology
DX: O99.891 Other specified diseases and conditions complicating pregnancy (principal); R10.13 Epigastric pain; O99.612 Diseases of the digestive system complicating pregnancy, second trimester; K59.00 Constipation, unspecified; R51.9 Headache, unspecified; R11.0 Nausea; Z3A.26 26 weeks gestation of pregnancy; Z87.898 Personal history of other specified conditions
CPT/HCPCS: 36415; 80053; 82570; 83690; 84156; 85025; 99215; A9270

== ENCOUNTER 2023-08-01 15:56 | Outpatient (CLI) | payer OTHER ==
--- NOTE | 2023-08-01 16:54 | Ultrasound Report ---
PROCEDURE: OB F/U or Repeat INDICATIONS: OBESITY OUTSIDE/PRIOR DATING DATA: Last menstrual period (LMP): 01/09/2023. LMP-based estimated date of delivery (LOULOU): 11/11/2023. First dating scan (date and location): 04/01/2023. Estimated date of delivery (LUOLOU) from first dating scan: 10/22/2023. The below data below was generated using the ultrasound LOULOU of 10/12/2023 TECHNIQUE: Real-time scanning was performed of the fetus, with image documentation and biometric measurements. COMPARISON: 06/03/2023 FINDINGS: General: A single living intrauterine gestation is present. Presentation: Vertex Placenta: Placental position is posterior, without previa. Amniotic fluid index: 18.7 cm, within normal limits for gestational age. heart rate: 143 beats per minute. Maternal cervical canal: 3.3 cm long; normal length is 2.5 cm or more. biometrics: Biparietal diameter: 7.7 cm 30 weeks 5 days 96th percentile Head circumference: 27.0 cm 30 weeks 5 days 88 percentile Abdominal circumference: 26.5 cm 30 weeks 4 days 95th percentile Femur length: 5.5 cm 29 weeks 0 days 54th percentile Estimated gestational age from initial scan: 28 weeks 2 days Composite gestational age from present scan: 30 weeks 2 days Estimated weight and percentile: 1512 g 95th percentile Measurement variability in biometric dating: +/- 10 days from 12-20 weeks gestation, +/- 2 weeks from 20-30 weeks gestation, +/- 3 weeks at 30 weeks gestation or more. Other: Not applicable. IMPRESSION: Single live intrauterine with growth at the 95th percentile. Recommend continued inte rval follow-up for evaluation of developing macrosomia. Reviewed by: Estefany Leong MD on 08/01/2023 4:53 PM PST Approved by: Estefany Leong MD on 08/01/2023 4:53 PM PST Station ID: [id number]
== END 2023-08-01 15:57 | disposition home or self-care (01) ==
LOC: DI 15:56
PROVIDERS: ATTEND Obstetrics & Gynecology
DX: O99.213 Obesity complicating pregnancy, third trimester (principal); Z3A.30 30 weeks gestation of pregnancy

== ENCOUNTER 2023-08-27 15:57 | Outpatient (CLI) | payer OTHER ==
--- NOTE | 2023-08-28 13:13 | Ultrasound Report ---
PROCEDURE: OB F/U or Repeat INDICATIONS: OBESITY OUTSIDE/PRIOR DATING DATA: Last menstrual period (LMP): 01/17/2023. LMP-based estimated date of delivery (LOULOU): 10/24/2023. First dating scan (date and location): 04/01/2023. Estimated date of delivery (LOULOU) from first dating scan: 10/22/2023. The below data below was generated using the ultrasound LOULOU of 10/22/2023 TECHNIQUE: Real-time scanning was performed of the fetus, with image documentation and biometric measurements. Endovaginal scanning: Not performed. COMPARISON: 08/01/2023 FINDINGS: General: A single living intrauterine gestation is present. Presentation: Vertex Placenta: Placental position is posterior, without previa. Amniotic fluid index: 12.2 cm, within normal limits for gestational age. Largest vertical pocket is 4.4 cm heart rate: 152 beats per minute. Maternal cervical canal: 5.1 cm long; normal length is 2.5 cm or more. biometrics: Biparietal diameter: 8.5 cm, 34 weeks and 2 days (93.8 percentile) Head circumference: 31.4 cm, 35 weeks and 2 days (91.1 percentile) Abdominal circumference: 28.48 cm, 32 weeks and 4 days (64.0 percentile) Femur length: 6.48 cm, 33 weeks and 3 days (75.7 percentile) Estimated gestational age from initial scan: 32 weeks and 0 days Composite gestational age from present scan: 33 weeks and 6 days Estimated weight and percentile: 2143 g which correlates with the 78th percentile Measurement variability in biometric dating: +/- 10 days from 12-20 weeks gestation, +/- 2 weeks from 20-30 weeks gestation, +/- 3 weeks at 30 weeks gestation or more. Other: Incidental note of a nuchal cord. Visualized portions of the chest/diaphragm, stomach/ab domen, bilateral kidneys, and pelvis/bladder appear unremarkable. IMPRESSION: Single living intrauterine gestation with estimated sonographic gestational age of appro ximately 33 weeks and 6 days. Expected interval growth has occurred. Estimated weight of approx imately 2143 g which correlates with the 78th percentile for gestational age. Incidental note of a nuchal cord. Reviewed by: Asif Hutchins MD on 08/28/2023 1:12 PM PST Approved by: Asif Hutchins MD on 08/28/2023 1:12 PM [facility] Station ID: [id number]
== END 2023-08-27 15:58 | disposition home or self-care (01) ==
LOC: DI 15:57
PROVIDERS: ATTEND Obstetrics & Gynecology
DX: O99.210 Obesity complicating pregnancy, unspecified trimester (principal); Z3A.33 33 weeks gestation of pregnancy

== ENCOUNTER 2023-09-03 15:06 | Outpatient (CLI) | payer OTHER ==
--- NOTE | 2023-09-03 20:34 | Ultrasound Report ---
PROCEDURE: OB Biophysical Profile INDICATIONS: OBESITY OUTSIDE/PRIOR DATING DATA: Last menstrual period (LMP): 01/17/2023. LMP-based estimated date of delivery (LOULOU): 10/24/2023. First dating scan (date and location): 04/01/2023. Estimated date of delivery (LOULOU) from first dating scan: 10/22/2023. The below data below was generated using the clinical LOULOU of 10/12/2023 TECHNIQUE: Real-time scanning was performed of the fetus, with image documentation and biometric [place] surements. Biophysical profile was also obtained. COMPARISON: OB ultrasound 06/03/2023 FINDINGS: General: A single living intrauterine gestation is present. Presentation: Vertex Placenta: Placental position is posterior, without previa. Amniotic fluid index: 18.7 cm, 79th percentile for gestational age. heart rate: 143 beats per minute. Maternal cervical canal: 3.3 cm long; normal length is 2.5 cm or more. biometrics: Biparietal diameter: 7.7 cm 30 weeks 5 days 96 percentile Head circumference: 27 cm 30 weeks 5 days 88th percentile Abdominal circumference: 26.5 cm 30 weeks 4 days 95th percentile Femur length: 5.5 cm 29 weeks 0 days 54th percentile Estimated gestational age from initial scan: 20 weeks 2 days Composite gestational age from present scan: 30 weeks 2 days Estimated weight and percentile: 1512 g, 95th percentile Measurement variability in biometric dating: +/- 10 days from 12-20 weeks gestation, +/- 2 weeks from 20-30 weeks gestation, +/- 3 weeks at 30 weeks gestation or later. IMPRESSION: Single live intrauterine with ultrasound gestational age today of 30 weeks 2 days. Estimated weight is at the 95th percentile. Reviewed by: Estefany Leong MD on 09/03/2023 8:33 PM PST Approved by: Estefany Leong MD on 09/03/2023 8:33 PM PST Station ID: [id number]
== END 2023-09-03 15:07 | disposition home or self-care (01) ==
LOC: DI 15:06
PROVIDERS: ATTEND Obstetrics & Gynecology
DX: O09.93 Supervision of high risk pregnancy, unspecified, third trimester (principal); O99.210 Obesity complicating pregnancy, unspecified trimester; Z3A.30 30 weeks gestation of pregnancy

== ENCOUNTER 2023-09-03 15:08 | Outpatient (CLI) | payer OTHER ==
[2023-09-03 16:41] VITALS: BP 102/72
--- NOTE | 2023-09-03 18:40 | PROCEDURE REPORT ---
- HPI Diagnosis/Indication for NST: Other (obesity) Current EDU 10/24/23 Gestation 32 Weeks and 5 Days Para 3 Vital Signs Temperature 97.8 F 09/03/23 16:26 Heart Rate 87 09/03/23 16:26 Respiratory Rate 18 09/03/23 16:26 Blood Pressure 102/72 09/03/23 16:26 Temperature 97.8 F 09/03/23 16:26 Heart Rate 87 09/03/23 16:26 Respiratory Rate 18 09/03/23 16:26 Blood Pressure 102/72 09/03/23 16:26 O2 Saturation If not protocol: Oxygen Flow, liters/minute - NST Procedure NST Procedure Start Date 09/03/23 Start Time 16:22 Stop Time 17:00 Patient States Movement Yes Nst reviewed in real time. baseline 135 10 x 10 acels c/w GA of 32 weeks. moderate variability. no decels. - Results and Plan Findings/Impression: age appropriate nst Plan: care as scheduled.
== END 2023-09-03 17:00 | disposition home or self-care (01) ==
LOC: WFO 15:08 → FBP 16:20 → WFO 17:00
PROVIDERS: ATTEND Obstetrics & Gynecology
DX: O99.213 Obesity complicating pregnancy, third trimester (principal); Z3A.32 32 weeks gestation of pregnancy; O09.93 Supervision of high risk pregnancy, unspecified, third trimester
CPT/HCPCS: 59025

== ENCOUNTER 2023-09-10 15:18 | Outpatient (CLI) | payer OTHER ==
--- NOTE | 2023-09-10 19:52 | Ultrasound Report ---
PROCEDURE: OB Biophysical Profile INDICATIONS: OBESITY OUTSIDE/PRIOR DATING DATA: Last menstrual period (LMP): 01/17/2023. LMP-based estimated date of delivery (LOULOU): 10/24/2023. First dating scan (date and location): 04/01/2023. Estimated date of delivery (LOULOU) from first dating scan: 10/22/2023. The below data below was generated using the ultrasound LOULOU of 10/22/2023 TECHNIQUE: Real-time scanning was performed of the fetus, with image documentation and biometric [place] sure[place]. Biophysical profile was also obtained. Endovaginal scanning: Not performed COMPARISON: 09/03/2023 FINDINGS: General: A single living intrauterine gestation is present. Presentation: Vertex Placenta: Placental position is posterior, without previa. Amniotic fluid index: 18.0 cm, within normal limits for gestational age. heart rate: 158 beats per minute. Maternal cervical canal: 3.8 cm long; normal length is 2.5 cm or more. Biophysical profile: Tone: 2 points. Movement: 2 points. Respiration: 2 points. Largest pocket of fluid: 2 points. IMPRESSION: 1. Living third trimester intrauterine with no sonographic evidence of complications. 2. Ultrasound biophysical profile is 8 out of 8. Reviewed by: Isauro Gee MD on 09/10/2023 7:51 PM PST Approved by: Isauro Gee MD on 09/10/2023 7:51 PM PST Station ID: [id number]
== END 2023-09-10 15:19 | disposition home or self-care (01) ==
LOC: DI 15:18
PROVIDERS: ATTEND Obstetrics & Gynecology
DX: O09.93 Supervision of high risk pregnancy, unspecified, third trimester (principal); O99.210 Obesity complicating pregnancy, unspecified trimester; Z3A.00 Weeks of gestation of pregnancy not specified

== ENCOUNTER 2023-09-10 15:24 | Outpatient (CLI) | payer OTHER ==
[2023-09-10 16:41] VITALS: BP 117/75; O2SAT 94
[2023-09-10 16:43] LABS: BASOPHILS % (AUTO) 0.3 %; EOSINOPHILS # (AUTO) 0.1 10^3/uL (0.0-0.7); EOSINOPHILS % (AUTO) 0.5 %; HCT - HEMATOCRIT 34.1 % (37.0-47.0); HGB - HEMOGLOBIN 11.4 g/dL (12.0-16.0); LYMPHOCYTES # (AUTO) 1.9 10^3/uL (1.5-3.5); LYMPHOCYTES % (AUTO) 19.4 %; MEAN CORPUSCULAR HEMOGLOBIN 28.7 pg (27.0-31.0); MEAN CORPUSCULAR HGB CONC 33.4 g/dL (32.0-36.0); MEAN CORPUSCULAR VOLUME 85.9 fL (81.0-99.0); MEAN PLATELET VOLUME 10.6 fL (7.9-10.8); MONOCYTES # (AUTO) 0.6 10^3/uL (0.0-1.0); MONOCYTES % (AUTO) 5.9 %; NEUTROPHILS % (AUTO) 73.4 %; PLT - PLATELET COUNT 203 10^3/uL (130-450); RED BLOOD COUNT 3.97 10^6/uL (4.20-5.40); RED CELL DISTRIBUTION WIDTH 14.4 % (12.0-15.0); WHITE BLOOD COUNT 9.6 x10^3/uL (4.8-10.8)
--- NOTE | 2023-09-10 17:02 | PROVIDER PROGRESS NOTE ---
- HPI Chief Complaint: Other (Patient presenting stating that she felt lightheaded when laid back for nonstress test. States that she has had episodes of this in the past where she has been anemic and had to receive Iron transfusion. She was unable to tolerate p.o. iron during this .) Current : Vital Signs Temperature 97.9 F 09/10/23 16:28 Heart Rate 100 09/10/23 16:28 Respiratory Rate 17 09/10/23 16:28 Blood Pressure 109/80 09/10/23 16:28 O2 Saturation 98 09/10/23 16:28 Temperature 97.9 F 09/10/23 16:28 Heart Rate 119 H 09/10/23 16:39 Respiratory Rate 17 09/10/23 16:28 Blood Pressure 117/75 09/10/23 16:39 O2 Saturation 94 09/10/23 16:39 If not protocol: Oxygen Flow, liters/minute - Procedures Diagnosis/Indication for NST: Other (Anemia, diabetes) NST Procedure: NST Procedure Start Time 16:22 Stop Time 17:00 33+6 weeks 135, moderate variability, positive accelerations, negative decelerations. Reactive NST. - Plan Plan: Patient has been taking nifedipine for chronic headaches. Her blood pressure today is on the low side. This could be contributing to her feeling near syncopal with positional changes. Recommended discontinuing nifedipine she has a follow-up appointment in the office tomorrow. Her hemoglobin today is 11 which is higher than previously.
== END 2023-09-10 17:10 | disposition home or self-care (01) ==
LOC: WFO 15:24 → FBP 15:58 → WFO 17:10
PROVIDERS: ATTEND Obstetrics & Gynecology
DX: O99.891 Other specified diseases and conditions complicating pregnancy (principal); R42 Dizziness and giddiness; O99.213 Obesity complicating pregnancy, third trimester; O09.93 Supervision of high risk pregnancy, unspecified, third trimester; Z3A.33 33 weeks gestation of pregnancy
CPT/HCPCS: 36415; 59025; 85025; 99213; 99215

== ENCOUNTER 2023-09-17 15:09 | Outpatient (CLI) | payer OTHER ==
--- NOTE | 2023-09-18 13:23 | Ultrasound Report ---
PROCEDURE: OB Biophysical Profile INDICATIONS: OBESITY OUTSIDE/PRIOR DATING DATA: Last menstrual period (LMP): 01/09/2023. LMP-based estimated date of delivery (LOULOU): 10/24/2023. First dating scan (date and location): 04/01/2023. Estimated date of delivery (LOULOU) from first dating scan: 10/22/2023. The below data below was generated using the sonographic LOULOU of 10/22/2023 TECHNIQUE: Real-time scanning was performed of the fetus, with image documentation and biometric [place] [employer]. Biophysical profile was also obtained. Endovaginal scanning: Not performed COMPARISON: Multiple prior exams, most recent 09/10/2023 FINDINGS: General: A single living intrauterine gestation is present. Presentation: Cephalic Placenta: Placental position is posterior, without previa. Amniotic fluid index: 11.2 cm, largest pocket is 3.2 cm, normal for gestational age. heart rate: 144 beats per minute. Maternal cervical canal: Closed and 4.5 cm long; normal length is 2.5 cm or more. Estimated gestational age from initial scan: 35 weeks 0 days Biophysical profile: Tone: 2 points. Movement: 2 points. Respiration: 2 points. Largest pocket of fluid: 2 points. Umbilical artery Doppler: Not evaluated IMPRESSION: 1. Single live intrauterine in cephalic presentation. 2. Normal biophysical profile score, 8 out of 8. 3. Normal amniotic fluid volume. Reviewed by: Shavon Medrano MD on 09/18/2023 1:21 PM PST Approved by: Shavon Medrano MD on 09/18/2023 1:21 PM PST Station ID: [id number]
== END 2023-09-17 15:10 | disposition home or self-care (01) ==
LOC: DI 15:09
PROVIDERS: ATTEND Obstetrics & Gynecology
DX: O09.93 Supervision of high risk pregnancy, unspecified, third trimester (principal); O99.213 Obesity complicating pregnancy, third trimester; Z3A.35 35 weeks gestation of pregnancy

== ENCOUNTER 2023-09-17 15:43 | Outpatient (CLI) | payer OTHER ==
[2023-09-17 16:04] VITALS: BP 111/71
--- NOTE | 2023-09-17 16:22 | PROCEDURE REPORT ---
- HPI Current EDU 10/24/23 Gestation 34 Weeks and 5 Days 5 Para 2 Vital Signs Temperature 98.1 F 09/17/23 15:54 Heart Rate 96 09/17/23 15:54 Respiratory Rate 18 09/17/23 15:54 Blood Pressure 111/71 09/17/23 15:54 Temperature 98.1 F 09/17/23 15:54 Heart Rate 96 09/17/23 15:54 Respiratory Rate 18 09/17/23 15:54 Blood Pressure 111/71 09/17/23 15:54 O2 Saturation If not protocol: Oxygen Flow, liters/minute Patient is a 28-year-old -0-1-2 at 34 weeks 5 days gestation here for scheduled NST. NST Performed 09/17/2023 NST Read 09/17/2023 FHT: 130 bpm baseline, moderate variability, accelerations present, no decelerations. Reactive NST [place]: Quiescent Diagnosis 34 weeks gestation Obesity Continue with scheduled NST. - NST Procedure NST Procedure Start Date 09/17/23 Start Time 15:51 Stop Time 16:11 Vibroacoustic Stimulation Used No Patient States Movement Yes
== END 2023-09-17 16:15 | disposition home or self-care (01) ==
LOC: FBP 15:43 → WFO 15:43
PROVIDERS: ATTEND Obstetrics & Gynecology
DX: O99.213 Obesity complicating pregnancy, third trimester (principal); Z3A.34 34 weeks gestation of pregnancy; O09.93 Supervision of high risk pregnancy, unspecified, third trimester
CPT/HCPCS: 59025

== ENCOUNTER 2023-09-25 14:34 | Outpatient (CLI) | payer OTHER ==
--- NOTE | 2023-09-25 16:13 | Ultrasound Report ---
PROCEDURE: OB Biophysical Profile INDICATIONS: OBESITY OUTSIDE/PRIOR DATING DATA: Last menstrual period (LMP): 01/09/2023. LMP-based estimated date of delivery (LOULOU): 10/24/2023. First dating scan (date and location): 04/01/2023. Estimated date of delivery (LOULOU) from first dating scan: 10/22/2023. The below data below was generated using the ultrasound LOULOU of 10/22/2023 TECHNIQUE: Real-time scanning was performed of the fetus, with image documentation and biometric [place] sure[place]. Biophysical profile was also obtained. COMPARISON: OB ultrasound 09/17/2023 FINDINGS: General: A single living intrauterine gestation is present. Presentation: Vertex Placenta: Placental position is posterior, without previa. Amniotic fluid index: 12.5 cm, within normal limits for gestational age. heart rate: 150 beats per minute. Maternal cervical canal: Not measured biometrics: Estimated gestational age from initial scan: 36 weeks 1 day Biophysical profile: Tone: 2 points. Movement: 2 points. Respiration: 2 points. Largest pocket of fluid: 2 points. IMPRESSION: Single live intrauterine with gestational age of 36 weeks 1 day. BPP 8 out of 8 Reviewed by: Estefany Leong MD on 09/25/2023 4:12 PM PST Approved by: Estefany Leong MD on 09/25/2023 4:12 PM PST Station ID: [id number]
== END 2023-09-25 14:35 | disposition home or self-care (01) ==
LOC: DI 14:34
PROVIDERS: ATTEND Obstetrics & Gynecology
DX: O09.93 Supervision of high risk pregnancy, unspecified, third trimester (principal); O99.213 Obesity complicating pregnancy, third trimester; Z3A.36 36 weeks gestation of pregnancy

== ENCOUNTER 2023-09-25 15:04 | Outpatient (CLI) | payer OTHER ==
[2023-09-25 15:26] VITALS: BP 123/78
--- NOTE | 2023-09-25 18:25 | PROCEDURE REPORT ---
- HPI Diagnosis/Indication for NST: Other (Obesity) Current EDU 10/24/23 Gestation 35 Weeks and 6 Days 5 Para 2 Vital Signs Temperature 98.2 F 09/25/23 15:17 Heart Rate 100 09/25/23 15:17 Respiratory Rate 18 09/25/23 15:17 Blood Pressure 123/78 09/25/23 15:17 Temperature 98.2 F 09/25/23 15:17 Heart Rate 100 09/25/23 15:17 Respiratory Rate 18 09/25/23 15:17 Blood Pressure 123/78 09/25/23 15:17 O2 Saturation If not protocol: Oxygen Flow, liters/minute - NST Procedure NST Procedure Start Date 09/25/23 Start Time 15:13 Stop Time 15:28 Vibroacoustic Stimulation Used No Patient States Movement Yes - Results and Plan Plan: Patient is a 28-year-old -0-2-2 at 35 weeks 6 days gestation here for scheduled NST. NST Performed 09/25/2023 NST Read 09/25/2023 FHT: 130 bpm baseline, moderate variability, accelerations present, no decelerations. Reactive NST [address]: Quiescent Diagnosis 36 weeks gestation Obesity Continue with scheduled NST.
== END 2023-09-25 15:42 | disposition home or self-care (01) ==
LOC: WFO 15:04 → FBP 15:06 → WFO 15:42
PROVIDERS: ATTEND Obstetrics & Gynecology
DX: O09.93 Supervision of high risk pregnancy, unspecified, third trimester (principal); O99.213 Obesity complicating pregnancy, third trimester; Z3A.35 35 weeks gestation of pregnancy
CPT/HCPCS: 59025

== ENCOUNTER 2023-10-02 14:51 | Outpatient (CLI) | payer OTHER ==
[2023-10-02 14:59] LABS: HCT - HEMATOCRIT 36.3 % (37.0-47.0); HGB - HEMOGLOBIN 12.1 g/dL (12.0-16.0); MEAN CORPUSCULAR HEMOGLOBIN 28.9 pg (27.0-31.0); MEAN CORPUSCULAR HGB CONC 33.3 g/dL (32.0-36.0); MEAN CORPUSCULAR VOLUME 86.6 fL (81.0-99.0); MEAN PLATELET VOLUME 10.7 fL (7.9-10.8); RED BLOOD COUNT 4.19 10^6/uL (4.20-5.40); RED CELL DISTRIBUTION WIDTH 14.5 % (12.0-15.0); WHITE BLOOD COUNT 11.7 x10^3/uL (4.8-10.8)
[2023-10-02 15:40] LABS: CREATININE,URINE 22.9 mg/dL; TOTAL PROTEIN,URINE TIMED < 4 mg/dL
--- NOTE | 2023-10-03 09:43 | Ultrasound Report ---
PROCEDURE: OB Biophysical Profile INDICATIONS: OBESITY OUTSIDE/PRIOR DATING DATA: Last menstrual period (LMP): 01/09/2023. LMP-based estimated date of delivery (LOULOU): 10/24/2023. First dating scan (date and location): 04/01/2023. Estimated date of delivery (LOULOU) from first dating scan: 10/22/2023. The below data below was generated using the ultrasound LOULOU of 10/22/2023 TECHNIQUE: Real-time scanning was performed of the fetus, with image documentation and biometric [place] surements. Biophysical profile was also obtained. COMPARISON: OB ultrasound, 09/25/2023, 09/17/2023. FINDINGS: General: A single living intrauterine gestation is present. Presentation: Cephalic Placenta: Placental position is posterior, without previa. Amniotic fluid index: 6.0 cm, 2% for gestational age. Largest pocket 3.5 cm. heart rate: 140 beats per minute. Maternal cervical canal: 4.3 cm long; normal length is 2.5 cm or more. biometrics: Biparietal diameter: 9.26 cm; 37 weeks 4 days; 78.7%. Head circumference: 33.6 cm; 38 weeks 4 days; 59.6%. Abdominal circumference: 35.95 cm; 39 weeks 6 days; 99.2%. Femur length: 7.1 cm; 36 weeks 3 days; 30.8%. Estimated gestational age from initial scan: 37 weeks 1 day. Composite gestational age from present scan: 38 weeks 1 day Estimated weight and percentile: 3571.2 g; 90.7% for gestational age. Measurement variability in biometric dating: +/- 10 days from 12-20 weeks gestation, +/- 2 weeks from 20-30 weeks gestation, +/- 3 weeks at 30 weeks gestation or later. Biophysical profile: Tone: 2 points. Movement: 2 points. Respiration: 2 points. Largest pocket of fluid: 2 points. IMPRESSION: 1. A single living IUP redemonstrated. 2. The estimated weight is 90.7% for gestational age. 3. TAVIA 6.0 cm. 4. biophysical profile score 8 out of 8. Reviewed by: Wen Hunter MD on 10/03/2023 9:41 AM PST Approved by: Wen Hunter MD on 10/03/2023 9:41 AM PST Station ID: [id number]
== END 2023-10-02 14:52 | disposition home or self-care (01) ==
LOC: DI 14:51
PROVIDERS: ATTEND Obstetrics & Gynecology
DX: O09.93 Supervision of high risk pregnancy, unspecified, third trimester (principal); O99.213 Obesity complicating pregnancy, third trimester; O36.63X0 Maternal care for excessive fetal growth, third trimester, not applicable or unspecified; Z3A.38 38 weeks gestation of pregnancy; O99.891 Other specified diseases and conditions complicating pregnancy; R51.9 Headache, unspecified; Z36.85 Encounter for antenatal screening for Streptococcus B
CPT/HCPCS: 36415; 82570; 84156; 84550; 85027; 87797

== ENCOUNTER 2023-10-02 15:28 | Outpatient (CLI) | payer OTHER ==
[2023-10-02 15:51] VITALS: BP 117/74; O2SAT 99
--- NOTE | 2023-10-02 17:00 | PROCEDURE REPORT ---
- HPI Diagnosis/Indication for NST: Gestational Hypertension Vital Signs Temperature 98.1 F 10/02/23 15:41 Heart Rate 107 H 10/02/23 15:41 Respiratory Rate 18 10/02/23 15:41 Blood Pressure 117/74 10/02/23 15:41 O2 Saturation 99 10/02/23 15:41 Temperature 98.1 F 10/02/23 15:50 Heart Rate 108 H 10/02/23 15:50 Respiratory Rate 17 10/02/23 15:50 Blood Pressure 117/74 10/02/23 15:50 O2 Saturation 99 10/02/23 15:50 If not protocol: Oxygen Flow, liters/minute - NST Procedure NST Procedure Start Time 15:13 Stop Time 15:28 - Results and Plan Findings/Impression: 130 mod [place] + A cells no D cells reactive. Plan: Pt SENIOR reviewed, discussed all BP wnl reviewed her past history of "atypical preEclampsia" with her first son (4yo) -- NO preeclampsia with her twins. reviewed current symptoms recommend 24h urine protein for additional information -- as that was the trigger with the first delivery. also, precautions reviewed. no CMP results today -- will redraw all PIH labs again tomorrow when she returns with her 24h urine here with her , supportive and involved. His mother is with their kids just now -- she is well supported at home.
== END 2023-10-02 16:45 | disposition home or self-care (01) ==
LOC: WFO 15:28 → FBP 15:32 → WFO 16:45
PROVIDERS: ATTEND Obstetrics & Gynecology
DX: O13.3 Gestational [pregnancy-induced] hypertension without significant proteinuria, third trimester (principal); O09.93 Supervision of high risk pregnancy, unspecified, third trimester; O99.891 Other specified diseases and conditions complicating pregnancy; R51.9 Headache, unspecified; Z36.85 Encounter for antenatal screening for Streptococcus B; O99.213 Obesity complicating pregnancy, third trimester; O36.63X0 Maternal care for excessive fetal growth, third trimester, not applicable or unspecified; Z3A.38 38 weeks gestation of pregnancy
CPT/HCPCS: 36415; 59025; 82570; 84156; 84550; 85027; 87797

== ENCOUNTER 2023-10-03 18:28 | Outpatient (CLI) | payer OTHER ==
[2023-10-03 18:52] VITALS: BP 128/76; O2SAT 99
[2023-10-03 18:55] LABS: BASOPHILS % (AUTO) 0.4 %; EOSINOPHILS % (AUTO) 0.4 %; HCT - HEMATOCRIT 35.7 % (37.0-47.0); HGB - HEMOGLOBIN 11.8 g/dL (12.0-16.0); LYMPHOCYTES # (AUTO) 2.1 10^3/uL (1.5-3.5); LYMPHOCYTES % (AUTO) 20.1 %; MEAN CORPUSCULAR HEMOGLOBIN 28.4 pg (27.0-31.0); MEAN CORPUSCULAR HGB CONC 33.1 g/dL (32.0-36.0); MEAN PLATELET VOLUME 10.8 fL (7.9-10.8); MONOCYTES # (AUTO) 0.6 10^3/uL (0.0-1.0); NEUTROPHILS # (AUTO) 7.5 10^3/uL (1.5-6.6); NEUTROPHILS % (AUTO) 72.6 %; PLT - PLATELET COUNT 215 10^3/uL (130-450); RED BLOOD COUNT 4.15 10^6/uL (4.20-5.40); RED CELL DISTRIBUTION WIDTH 14.3 % (12.0-15.0); WHITE BLOOD COUNT 10.3 x10^3/uL (4.8-10.8)
[2023-10-03 18:58] LABS: TOTAL PROTEIN,URINE TIMED 6 mg/dL
[2023-10-03 19:05] LABS: TOTAL PROTEIN 24HR,URINE 180 mg/24hr (40-150); TOTAL VOLUME 24HRS,URINE 3000 mL
[2023-10-03 19:16] LABS: ALBUMIN 3.4 g/dL (3.2-5.5); ALBUMIN/GLOBULIN RATIO 1.1 (1.0-2.2); BILIRUBIN,TOTAL 0.4 mg/dL (0.2-1.0); CALCIUM 9.1 mg/dL (8.5-10.3); CREATININE 0.5 mg/dL (0.6-1.3); POTASSIUM 3.8 mmol/L (3.5-4.5); TOTAL PROTEIN 6.4 g/dL (6.4-8.9)
--- NOTE | 2023-10-03 19:34 | PROVIDER PROGRESS NOTE ---
- HPI Current : Vital Signs Temperature 98.4 F 10/03/23 18:49 Heart Rate 101 H 10/03/23 18:49 Respiratory Rate 18 10/03/23 18:49 Blood Pressure 128/76 10/03/23 18:49 O2 Saturation 99 10/03/23 18:49 Temperature 98.4 F 10/03/23 18:49 Heart Rate 101 H 10/03/23 18:49 Respiratory Rate 18 10/03/23 18:49 Blood Pressure 128/76 10/03/23 18:49 O2 Saturation 99 10/03/23 18:49 If not protocol: Oxygen Flow, liters/minute - Plan Plan: Patient is a 28-year-old at 37 weeks gestation presenting to triage for assessment for preeclampsia. She has good movement, no leaking, no vaginal bleeding. She has chronic headaches, did take some Tylenol this morning. No change from baseline. She said she had brief white spots in her vision while washing her hair in the shower today, but nothing since. No abdominal pain Physical Exam Constitutional: alert, no acute distress, well hydrated, well developed, well nourished, appropriate dress. Cardiovascular: Regular rate and rhythm. Respiratory: no respiratory distress. Abdomen: nondistended, nontender, no guarding. Psych: affect and mood appropriate, normal interaction, good eye contact. FHT: 135 bpm baseline, moderate variability, accelerations present, no decelerations. [place]: Quiescent Labs: Platelets 215, AST/ALT: 9/6, 24-hour urine 180 mg Assessment and plan 37 weeks gestation -routine care -Can skip tomorrow's NST as she has reactive NST today. History of preeclampsia -Preeclampsia workup negative.
== END 2023-10-03 20:14 | disposition home or self-care (01) ==
LOC: WFO 18:28 → FBP 18:30 → WFO 20:14
PROVIDERS: ATTEND Obstetrics & Gynecology
DX: O99.891 Other specified diseases and conditions complicating pregnancy (principal); R51.9 Headache, unspecified; H53.8 Other visual disturbances; Z87.59 Personal history of other complications of pregnancy, childbirth and the puerperium; Z3A.37 37 weeks gestation of pregnancy
CPT/HCPCS: 36415; 59025; 80053; 84156; 85025

== ENCOUNTER 2023-10-06 16:33 | Outpatient (CLI) | payer OTHER ==
[2023-10-06 16:52] VITALS: BP 113/74
--- NOTE | 2023-10-06 20:31 | PROCEDURE REPORT ---
- HPI Diagnosis/Indication for NST: Other (obesity) Current EDU 10/24/23 Gestation 37 Weeks and 3 Days 5 Para 2 Vital Signs Temperature 98.4 F 10/06/23 16:47 Heart Rate 102 H 10/06/23 16:47 Respiratory Rate 18 10/06/23 16:47 Blood Pressure 113/74 10/06/23 16:47 Temperature 98.4 F 10/06/23 16:48 Heart Rate 102 H 10/06/23 16:48 Respiratory Rate 18 10/06/23 16:48 Blood Pressure 113/74 10/06/23 16:48 O2 Saturation If not protocol: Oxygen Flow, liters/minute - NST Procedure NST Procedure Start Date 10/06/23 Start Time 16:41 Stop Time 17:10 Patient States Movement Yes NST reviewed. + acels. no decels. moderate variability - Results and Plan Findings/Impression: reactive NST Plan: as scheduled.
== END 2023-10-06 17:15 | disposition home or self-care (01) ==
LOC: WFO 16:33 → FBP 16:35 → WFO 17:15
PROVIDERS: ATTEND Obstetrics & Gynecology
DX: O09.93 Supervision of high risk pregnancy, unspecified, third trimester (principal); O99.213 Obesity complicating pregnancy, third trimester; Z3A.37 37 weeks gestation of pregnancy
CPT/HCPCS: 59025

== ENCOUNTER 2023-10-09 08:00 | Outpatient (CLI) | payer OTHER ==
[2023-10-09 15:23] LABS: RUPTURE OF MEMBRANES PLUS NEGATIVE (NEGATIVE)
[2023-10-09 19:24] LABS: BACTERIAL VAGINOSIS DNA NEGATIVE (NEGATIVE); CANDIDA GLABRATA DNA NEGATIVE (NEGATIVE); CANDIDA GROUP DNA NEGATIVE (NEGATIVE); CANDIDA KRUSEI DNA NEGATIVE (NEGATIVE); TRICHOMONAS VAGINALIS DNA NEGATIVE (NEGATIVE)
== END 2023-10-09 23:59 | disposition home or self-care (01) ==
LOC: LAB.WC 08:00
PROVIDERS: ATTEND Obstetrics & Gynecology
DX: N89.8 Other specified noninflammatory disorders of vagina (principal)
CPT/HCPCS: 81514; 84112

== ENCOUNTER 2023-10-09 15:12 | Outpatient (CLI) | payer OTHER ==
[2023-10-09 15:24] VITALS: BP 113/82
--- NOTE | 2023-10-09 16:10 | PROCEDURE REPORT ---
- HPI Vital Signs Temperature 97.9 F 10/09/23 15:22 Heart Rate 99 10/09/23 15:22 Respiratory Rate 16 10/09/23 15:22 Blood Pressure 113/82 H 10/09/23 15:22 Temperature 97.9 F 10/09/23 15:22 Heart Rate 99 10/09/23 15:22 Respiratory Rate 16 10/09/23 15:22 Blood Pressure 113/82 H 10/09/23 15:22 O2 Saturation If not protocol: Oxygen Flow, liters/minute - NST Procedure NST Procedure Start Time 16:41 Stop Time 17:10 - Results and Plan Plan: Patient is a 28-year-old here for NST. NST Performed 10/09/2023 NST Read 10/09/2023 FHT: 20 bpm baseline, moderate variability, accelerations present, no decelerations. Reactive NST [place]: Quiescent Diagnosis 37 weeks gestation Obesity Continue with scheduled NST.
== END 2023-10-09 15:52 | disposition home or self-care (01) ==
LOC: WFO 15:12 → FBP 15:19 → WFO 15:52
PROVIDERS: ATTEND Obstetrics & Gynecology
DX: O09.93 Supervision of high risk pregnancy, unspecified, third trimester (principal); O99.213 Obesity complicating pregnancy, third trimester; O99.891 Other specified diseases and conditions complicating pregnancy; N89.8 Other specified noninflammatory disorders of vagina; Z3A.37 37 weeks gestation of pregnancy
CPT/HCPCS: 59025; 81514; 84112

== ENCOUNTER 2023-10-11 01:23 | Outpatient (CLI) | payer OTHER ==
[2023-10-11 01:54] VITALS: BP 113/76
[2023-10-11 02:01] LABS: RUPTURE OF MEMBRANES PLUS NEGATIVE (NEGATIVE)
--- NOTE | 2023-10-11 02:13 | PROVIDER PROGRESS NOTE ---
- HPI Chief Complaint: Other (pt presented after slipping while walking with grocery cart at [employer], continued to hold on to grocery cart, knealt down on R knee while L knee / leg slid out backwards behind her, did not hit abdomen or bottom, majority of slip was absorbed by R knee. also + vaginal discharge with wiping since) Current : Vital Signs Temperature 97.9 F 10/11/23 01:48 Heart Rate 97 10/11/23 01:48 Respiratory Rate 16 10/11/23 01:48 Blood Pressure 113/76 10/11/23 01:48 Temperature 97.9 F 10/11/23 01:48 Heart Rate 97 10/11/23 01:48 Respiratory Rate 16 10/11/23 01:48 Blood Pressure 113/76 10/11/23 01:48 O2 Saturation If not protocol: Oxygen Flow, liters/minute - Exam VSS NAD Conjunctiva pink, pale sclera +S1, S2, CTAB, no increased work of breathing Abd soft, NT, ND, visibly gravid at term [place]: cephalic EFM: 125mod collins + A cells no D cells, reactive [place]: acontractile Cx: 1.5cm per RN dry vaginal vault per RN Ext: neg CCE - Procedures OB Procedure Performed: NST Diagnosis/Indication for NST: Other NST Procedure: NST Procedure Start Time 15:20 Stop Time 15:44 Service Date of procedure: 10/11/23 Procedure Details: 125 mod collins + A cells no D cells reactive Findings: reactive NST no LOF ROM plus test negative no bleeding - Plan Plan: 28yo (twins) at 38&1 presents after slipping in [employer] - no hard fall - pulling her L groin muscle - and leaking more fluid after voiding since 8pm. no SxS abruption and >6h since fall, no increase in contractions (had been having BH prior), no vaginal bleeding, not ruptured not in labor took 1500mg tylenol at home - none additional given here is present, active, and supportive - lives together and drives. given some stretching hot / cold advice about groin pain. OK to D/C home with precautions and to rest.
== END 2023-10-11 02:30 | disposition home or self-care (01) ==
LOC: WFO 01:23 → FBP 01:25 → WFO 02:30
PROVIDERS: ATTEND Obstetrics & Gynecology
DX: O9A.213 Injury, poisoning and certain other consequences of external causes complicating pregnancy, third trimester (principal); S39.011A Strain of muscle, fascia and tendon of abdomen, initial encounter; W18.40XA Slipping, tripping and stumbling without falling, unspecified, initial encounter; Y92.512 Supermarket, store or market as the place of occurrence of the external cause; O99.891 Other specified diseases and conditions complicating pregnancy; N89.8 Other specified noninflammatory disorders of vagina
CPT/HCPCS: 59025; 84112; 99213; 99215

== ENCOUNTER 2023-10-13 16:35 | Outpatient (CLI) | payer OTHER ==
[2023-10-13 16:57] VITALS: BP 120/84
--- NOTE | 2023-10-13 17:19 | PROCEDURE REPORT ---
- HPI Current EDU 10/24/23 Gestation 38 Weeks and 3 Days 4 Para 4 Vital Signs Temperature 98.3 F 10/13/23 16:45 Heart Rate 114 H 10/13/23 16:45 Respiratory Rate 18 10/13/23 16:45 Blood Pressure 120/84 H 10/13/23 16:45 Temperature 98.3 F 10/13/23 16:45 Heart Rate 114 H 10/13/23 16:45 Respiratory Rate 18 10/13/23 16:45 Blood Pressure 120/84 H 10/13/23 16:45 O2 Saturation If not protocol: Oxygen Flow, liters/minute - NST Procedure NST Procedure Start Date 10/13/23 Start Time 16:43 Stop Time 17:15 Vibroacoustic Stimulation Used No Patient States Movement No - Results and Plan Plan: Patient is a 28-year-old G5, P4 at 38 weeks 3 days gestation here for NST. NST Performed 10/13/2023 NST Read 10/13/2023 FHT: 125 bpm baseline, moderate variability, accelerations present, no decelerations. Reactive NST [place]: Quiescent Diagnosis 38 weeks gestation Obesity Continue with scheduled NST.
== END 2023-10-13 17:20 | disposition home or self-care (01) ==
LOC: WFO 16:35 → FBP 16:36 → WFO 17:20
PROVIDERS: ATTEND Obstetrics & Gynecology
DX: O99.213 Obesity complicating pregnancy, third trimester (principal); Z3A.38 38 weeks gestation of pregnancy
CPT/HCPCS: 59025

== ENCOUNTER 2023-10-16 15:09 | Outpatient (CLI) | payer OTHER ==
--- NOTE | 2023-10-03 09:49 | Ultrasound Report ---
PROCEDURE: OB Follow up INDICATIONS: LARGE FOR GESTATION AGE FETUS, THIRD TRIMESTER OUTSIDE/PRIOR DATING DATA: Last menstrual period (LMP): 01/09/2023. LMP-based estimated date of delivery (LOULOU): 10/24/2023. First dating scan (date and location): 04/01/2023. Estimated date of delivery (LOULOU) from first dating scan: 10/22/2023. The below data below was generated using the ultrasound LOULOU of 10/22/2023 TECHNIQUE: Real-time scanning was performed of the fetus, with image documentation and biometric measurements. Endovaginal scanning: Not performed. COMPARISON: OB ultrasound, 09/25/2023, 09/17/2023. FINDINGS: General: A single living intrauterine gestation is present. Presentation: Cephalic Placenta: Placental position is posterior, without previa. Amniotic fluid index: 6.0 cm, 2% for gestational age. Largest pocket 3.5 cm. heart rate: 140 beats per minute. Maternal cervical canal: 4.3 cm long; normal length is 2.5 cm or more. biometrics: Biparietal diameter: 9.26 cm; 37 weeks 4 days; 78.7%. Head circumference: 33.6 cm; 38 weeks 4 days; 59.6%. Abdominal circumference: 35.95 cm; 39 weeks 6 days; 99.2%. Femur length: 7.1 cm; 36 weeks 3 days; 30.8%. Estimated gestational age from initial scan: 37 weeks 1 day. Composite gestational age from present scan: 38 weeks 1 day Estimated weight and percentile: 3571.2 g; 90.7% for gestational age. Measurement variability in biometric dating: +/- 10 days from 12-20 weeks gestation, +/- 2 weeks from 20-30 weeks gestation, +/- 3 weeks at 30 weeks gestation or later. Biophysical profile: Tone: 2 points. Movement: 2 points. Respiration: 2 points. Largest pocket of fluid: 2 points. IMPRESSION: 1. A single living IUP redemonstrated. 2. The estimated weight is 90.7% for gestational age. 3. TAVIA 6.0 cm. 4. biophysical profile score 8 out of 8. Reviewed by: Wen Hunter MD on 10/03/2023 9:48 AM PST Approved by: Wen Hunter MD on 10/03/2023 9:48 AM [facility] Station ID: [id number]
--- NOTE | 2023-10-16 17:31 | Ultrasound Report ---
PROCEDURE: OB Biophysical Profile INDICATIONS: OBESITY OUTSIDE/PRIOR DATING DATA: Last menstrual period (LMP): 01/17/2023. LMP-based estimated date of delivery (LOULOU): 10/24/2023. First dating scan (date and location): 04/01/2023. Estimated date of delivery (LOULOU) from first dating scan: 10/22/2023. The below data below was generated using the working LOULOU of 10/22/2023 TECHNIQUE: Real-time scanning was performed of the fetus, with image documentation and biometric [place] surements. Biophysical profile was also obtained. Endovaginal scanning: None COMPARISON: Multiple priors FINDINGS: General: A single living intrauterine gestation is present. Presentation: Vertex Placenta: Placental position is fundal/posterior, without previa. Amniotic fluid index: 2.8 cm, less than 0.5 percentile for gestational age. heart rate: 152 beats per minute. Maternal cervical canal: Nonvisualized Estimated gestational age from initial scan: 39 week 1 day Composite gestational age from present scan: Not applicable Estimated weight and percentile: Not applicable Measurement variability in biometric dating: +/- 10 days from 12-20 weeks gestation, +/- 2 weeks from 20-30 weeks gestation, +/- 3 weeks at 30 weeks gestation or later. Biophysical profile: Tone: 2 points. Movement: 2 points. Respiration: 2 points. Largest pocket of fluid: 0 points. IMPRESSION: Single live intrauterine consistent with 39 week 1 day gestation. Oligohydramnios. TAVIA 2.8 cm. Biophysical profile score 6 out of 8, decreased from 8 out of 8 on 10/09/2023 Findings were discussed with the [facility] labor and delivery service at 1525 hours by the sonographe r Reviewed by: Antonio West MD on 10/16/2023 4:29 PM AKST Approved by: Antonio West MD on 10/16/2023 4:29 PM AKST Station ID: [id number]
== END 2023-10-16 15:10 | disposition home or self-care (01) ==
LOC: DI 15:09
PROVIDERS: ATTEND Obstetrics & Gynecology
DX: O09.93 Supervision of high risk pregnancy, unspecified, third trimester (principal); O99.213 Obesity complicating pregnancy, third trimester; E66.9 Obesity, unspecified; O41.03X0 Oligohydramnios, third trimester, not applicable or unspecified; Z3A.39 39 weeks gestation of pregnancy

== ENCOUNTER 2023-10-16 15:29 | Inpatient (IN) | payer OTHER ==
[2023-10-16] MEDS ORDERED: hydrALAZINE INJ 20 MG/ML VIAL IVP PRN ×2 (18:40)
[2023-10-16] MEDS ORDERED: miSOPROStoL 200 MCG TABLET PR PRN (18:40)
[2023-10-16] MEDS ORDERED: miSOPROStoL 200 MCG TABLET BC PRN (18:40)
[2023-10-16] MEDS ORDERED: fentaNYL 100 MCG/2 ML VIAL IVP PRN (18:40)
[2023-10-16] MEDS ORDERED: ONDANSETRON 4 MG/2 ML VIAL IVP PRN (18:40)
[2023-10-16] MEDS ORDERED: TRANEXAMIC ACID IN NACL 1,000 MG/100 ML BAG IV PRN (18:40)
[2023-10-16] MEDS ORDERED: NIFEdipine 10 MG CAPSULE PO PRN (18:40)
[2023-10-16] MEDS ORDERED: CARBOPROST TROMETHAMINE 250 MCG/ML AMP IM PRN (18:40)
[2023-10-16] MEDS ORDERED: METHYLERGONOVINE 0.2 MG/ML VIAL IM PRN (18:40)
[2023-10-16] MEDS ORDERED: LABETALOL 20 MG/4 ML SYRINGE IVP PRN ×3 (18:40)
[2023-10-16] MEDS ORDERED: lidocaine 1% 20 ML MDV ID PRN (18:40)
[2023-10-16] MEDS ORDERED: TERBUTALINE 1 MG/ML VIAL SUBQ PRN (18:40)
[2023-10-16] MEDS ORDERED: OXYTOCIN 10 UNIT/ML VIAL IM PRN (18:40)
[2023-10-16] MEDS ORDERED: SODIUM CHLORIDE FLUSH 0.9% 10 ML SYRINGE IVP PRN (18:40)
[2023-10-16] MEDS ORDERED: OXYTOCIN/SODIUM CHLORIDE 500 ML IV PRN (18:40)
[2023-10-16] MEDS ORDERED: SODIUM CHLORIDE FLUSH 0.9% 10 ML SYRINGE IVP SCH (19:00)
[2023-10-16] MEDS ORDERED: miSOPROStoL 100 MCG TABLET ONE (19:39)
[2023-10-16] MEDS: miSOPROStoL 100 MCG TABLET VG SCH ×2 (19:42→23:45)
--- NOTE | 2023-10-17 01:26 | HISTORY & PHYSICAL EXAMINATION ---
Admit History - Visit Reason Visit Reason: Other (Pt presented for NST after BPP that showed oligohydramnios) - : 5 Parity: 2 Premature: 0 Ectopic: 0 : 2 Care: positive: [facility] Smoking Status: Never smoker - Other Maternal History Other Maternal History: 28yo @ 39w presents for IOL after growth scan that showed oligohydramnios growth was done to f/u 36w scan in 90%ile. +FM, -VB, -ctx no F/C/N/V/CP/SOB ANC c/b: Problems: BMI 42: Counseled on healthy lifestyle. EFW at 32 and 36 weeks. ANFS 34 weeks. 08/27- 78th%ile 10/02- 90th%ile Nausea, vomiting : Present but improved. Anemia of : HGB dropped from 13.3 to 11.7. Taking PNV with Iron 10/03- H/H 11.8/35.7 plt 215 Chronic headache: Stopped nifedipine for hypotension. Tylenol helping some. Cyproheptadine started, but not taking now. daily persistent SENIOR, evaluated by neurology. since 2019. started during her first first trimester. better 2nd trimester. 3rd trimester worse again. 36w4d twins atypical preE. then better for a bit. IUD at 12 weeks pp and coming back. April 15 2020 came one day and never went away. topamax made face numb. botox didn't help 4 times. History of preeclampsia, delivery at 36w. Taking aspirin GERD: Famotidine increased to BID. EPDS 12: Declines need for intervention. - single with preE at 36w, twins at 38 wks. no preE. all vaginal del. Pre- Weight: 246.8 BMI: 42.52 Blood type: O+ Antibody: Negative CBC: PLT: 266 HCT: 38.5 HGB: 13.3 RUB: 26.9 VZV: 554 HBsAg: Negative HepC: NR RPR/AB-EIA: NR HIV: NR PAP: 2020 normal- DUE GC/CT: obtained 04/15 negative HSV: denies self/partner Genetic testing: NIPT test- Negative Covid: Pfizer initial and booster, declines booster. Flu: 07/07/2023 FAS: Placenta posterior, TAVIA 12.5cm, FHR 144, CL 4.5cm, 83.4% Placenta: Posterior Cord: 3vc TAVIA: 12.5cm EFW: 83.4% 361g 50gm OGCT 116 TDAP: 08/06 Breast Pump: 07/25 3rd trimester 07/23/23-H/H-12.1/35.9 PLT 240 09/10/23- H/H 11.4/34.1 plt 203 10/03- 11.8/35.7 [id number] RSV 09/25/23 GBS: Negative Delivery plan: Contraception: Partner had vasectomy. PMH: BMI 42, chronic SENIOR, covid in 2021, depression and anxiety, anemia PSH: tonsils in 2008 and lap choley in 2022 POB: had [place] delivered at 36 weeks because of "atypical pre Eclampsia" twins carried to 38w, no pre eclampsia all babies born vaginally without complications. PGYN: no h/o abnormal pap no h/o STDs no h/o problems with ovaries or uterus pt with regular monthly periods, when not Meds: PNV, aspirin, magnesium, famotidine All: metoclopramide Soc: neg x3, lives with F[employer] in [place] [employer] and three kids Fam: high cholesterol, HTN, diabetes, anxiety, depression. VSS NAD Conjunctiva pink, pale sclera +S1, S2, CTAB, no increased work of breathing Abd soft, NT, ND, visibly gravid at term [place]: cephalic EFM: 135mod [place] + A cells no D cells, reactive [place]: acontractile Cx: //hi Ext: neg CCE - HPI Current EDU 10/24/23 Gestation 38 Weeks and 6 Days 5 Para 2 Vital Signs Temperature 98.2 F 10/16/23 15:52 Heart Rate 102 H 10/16/23 15:52 Respiratory Rate 17 10/16/23 15:52 Blood Pressure 123/73 10/16/23 15:52 O2 Saturation 98 10/16/23 15:52 Temperature 98.8 F 10/16/23 21:37 Heart Rate 112 H 10/16/23 21:37 Respiratory Rate 16 10/16/23 21:37 Blood Pressure 120/82 H 10/16/23 21:37 O2 Saturation 98 10/16/23 15:52 If not protocol: Oxygen Flow, liters/minute - NST Procedure NST Procedure Start Date 10/16/23 Start Time 15:45 Stop Time 16:20 Vibroacoustic Stimulation Used No Patient States Movement Yes Meds/Allgy - Home Medications Home Medications: Ambulatory Orders Medication Instructions Recorded Confirmed Aspirin EC [Ecotrin] 1 tab PO DAILY 04/29/23 04/29/23 NIFEdipine [Nifedipine ER] 1 tab PO DAILY 04/29/23 04/29/23 Ondansetron HCl 4 mg PO DAILY PRN 04/29/23 04/29/23 Pnv No.95/Ferrous Fum/Folic AC 1 tab PO DAILY 04/29/23 04/29/23 [ Tablet] Acetaminophen [Tylenol] 650 mg PO Q4HR PRN #120 tab 05/01/23 Docusate Sodium 100Mg Capsule 100 - 200 mg PO BID PRN #60 cap 07/23/23 [Colace 100Mg Capsule] - Allergies Allergies/Adverse Reactions: Allergies Allergy/AdvReac Type Severity Reaction Status Date / Time metoclopramide AdvReac Anxiety Verified 04/29/23 14:38 Physical - Abdominal Exam Vital Signs: Temp Pulse Resp BP Pulse Ox O2 Flow Rate 98.8 F 112 H 16 120/82 H 98 10/16/23 21:37 10/16/23 21:37 10/16/23 21:37 10/16/23 21:37 10/16/23 15:52 Plan for Labor - Plan For Labor I expect patient to be DC'd or transferred within 96 hours.: Yes Plan for Labor: 28yo multip (1 36 weeker and then 38 week twins - all vaginally) at 39 weeks here for IOL 2'2 oligohydramnios admit to L&D -- routine admission orders -- routine admission process h/o PIH in other -- f/u CMP as well IOL -- begin with misoprostol FWB -- cat 1 -- cEFM BMI 42 -- remember lovenox if it becomes indicated. -- and SCDs with epidural. SENIOR Chronic, no additional evaluation while here -- though when her medication treatment options increase.
[2023-10-17] MEDS: miSOPROStoL 100 MCG TABLET VG SCH (03:55)
[2023-10-17 07:55] LABS: BASOPHILS % (AUTO) 0.4 %; EOSINOPHILS % (AUTO) 0.4 %; HCT - HEMATOCRIT 38.5 % (37.0-47.0); HGB - HEMOGLOBIN 12.4 g/dL (12.0-16.0); LYMPHOCYTES # (AUTO) 2.1 10^3/uL (1.5-3.5); LYMPHOCYTES % (AUTO) 20.6 %; MEAN CORPUSCULAR HEMOGLOBIN 28.6 pg (27.0-31.0); MEAN CORPUSCULAR HGB CONC 32.2 g/dL (32.0-36.0); MEAN CORPUSCULAR VOLUME 88.7 fL (81.0-99.0); MEAN PLATELET VOLUME 12.6 fL (7.9-10.8); MONOCYTES # (AUTO) 0.6 10^3/uL (0.0-1.0); MONOCYTES % (AUTO) 5.7 %; NEUTROPHILS # (AUTO) 7.4 10^3/uL (1.5-6.6); NEUTROPHILS % (AUTO) 72.5 %; PLT - PLATELET COUNT 260 10^3/uL (130-450); RED BLOOD COUNT 4.34 10^6/uL (4.20-5.40); RED CELL DISTRIBUTION WIDTH 15.1 % (12.0-15.0); WHITE BLOOD COUNT 10.2 x10^3/uL (4.8-10.8)
[2023-10-17 08:10] LABS: ALBUMIN 3.6 g/dL (3.2-5.5); ALBUMIN/GLOBULIN RATIO 1.1 (1.0-2.2); BILIRUBIN,TOTAL 0.4 mg/dL (0.2-1.0); CALCIUM 9.2 mg/dL (8.5-10.3); CREATININE 0.5 mg/dL (0.6-1.3); TOTAL PROTEIN 6.9 g/dL (6.4-8.9)
[2023-10-17] MEDS ORDERED: OXYTOCIN/SODIUM CHLORIDE 500 ML IV SCH (09:00)
[2023-10-17] MEDS: LACTATED RINGERS 1,000 ML IV PRN ×2 (10:52→14:21)
--- NOTE | 2023-10-17 12:35 | ANESTHESIA ---
Pre-Anesthesia VS, & Labs - Diagnosis labor pain - Procedure labor epidural Vital Signs: Temp Pulse Resp BP Pulse Ox O2 Flow Rate 37.1 C 112 H 16 120/82 H 98 10/16/23 21:37 10/16/23 21:37 10/16/23 21:37 10/16/23 21:37 10/16/23 15:52 Height: 5 ft 4 in - NPO Other (solids until epidural placement) - Is Patient ?: Yes - Lab Results Current Lab Results: Laboratory Tests 10/16/23 17:50: Sodium 135, Potassium 4.0, Chloride 105, Carbon Dioxide 21, A nion Gap 9.0, BUN 7, Creatinine 0.5 L, Estimated GFR (MDRD) 149, Glucose 97, Calcium 9.2, Total Bilirubin 0.4, AST 11, ALT 6 L, Alkaline Phosphatase 221 H, Total Protein 6.9, Albumin 3.6, Globulin 3.3, Albumin/Globulin Ratio 1.1 10/16/23 17:50: WBC 10.2, RBC 4.34, Hgb 12.4, Hct 38.5, MCV 88.7, MCH 28.6, MCHC 32.2, RDW 15.1 H, Plt Count 260, MPV 12.6 H, Neut # (Auto) 7.4 H, Lymph # (Auto) 2.1, [place] # (Auto) 0.6, Eos # (Auto) 0.0, Baso # (Auto) 0.0, Absolute Nucleated RBC 0.00, Nucleated RBC % 0.0 10/16/23 17:50: Blood Type O POSITIVE, Antibody Screen NEGATIVE Fish Bones: 10/16/23 17:50 10/16/23 17:50 Home Medications and Allergies Active Medications Carboprost Tromethamine (Carboprost Tromethamine 250 Mcg/Ml Amp) 250 mcg IM .ONCE PRN PRN Reason: Hemorrhage Fentanyl (Fentanyl 100 Mcg/2 Ml Vial) 50 mcg IVP Q1H PRN PRN Reason: Severe Pain (score 7-10) Hydralazine HCl (Hydralazine Inj 20 Mg/Ml Vial) 10 mg IVP .ONCE PRN; Protocol PRN Reason: SBP> or= 160 OR DBP> or= 110 Hydralazine HCl (Hydralazine Inj 20 Mg/Ml Vial) 5 - 10 mg IVP Q20M PRN; Protocol PRN Reason: SBP> or= 160 OR DBP> or= 110 Lactated Ringer's (Lr) 500 mls @ 999 mls/hr IV PRN PRN PRN Reason: distress Last Admin: 10/17/23 10:52 Dose: 125 mls/hr Oxytocin/Sodium Chloride (Pitocin/Sodium Chloride) 500 mls @ 999 mls/hr IV PRN PRN; Protocol PRN Reason: POST- HEMORR PREVENTION Tranexamic Acid (Tranexamic 1,000 Mg/100ml-Nacl) 1,000 mg in 100 mls @ 600 mls/hr IV Q30M PRN PRN Reason: EBL >1200mL and within 3hr Oxytocin/Sodium Chloride (Pitocin/Sodium Chloride) 500 mls @ 1 mls/hr IV TITR JUNO; Protocol Last Titration: 10/17/23 12:03 Dose: 6 milliunit/min, 6 mls/hr Labetalol HCl (Labetalol 20 Mg/4 Ml Syringe) 20 mg IVP .ONCE PRN; Protocol PRN Reason: SBP> or= 160 OR DBP> or= 110 Labetalol HCl (Labetalol 20 Mg/4 Ml Syringe) 20 - 80 mg IVP Q10M PRN; Protocol PRN Reason: SBP> or= 160 OR DBP> or= 110 Labetalol HCl (Labetalol 20 Mg/4 Ml Syringe) 20 - 40 mg IVP Q10M PRN; Protocol PRN Reason: SBP> or= 160 OR DBP> or= 110 Lidocaine HCl (Lidocaine 1% 20 Ml Mdv) 20 ml ID .ONCE PRN PRN Reason: PERINEAL REPAIR Stop: 10/19/23 18:40 Methylergonovine Maleate (Methylergonovine 0.2 Mg/Ml Vial) 0.2 mg IM .ONCE PRN PRN Reason: Hemorrhage Misoprostol (Misoprostol 200 Mcg Tablet) 600 mcg BC .ONCE PRN PRN Reason: Hemorrhage Misoprostol (Misoprostol 200 Mcg Tablet) 800 mcg IN .ONCE PRN PRN Reason: Hemorrhage Misoprostol (Misoprostol 100 Mcg Tablet) 25 mcg VG Q4HR JUNO Last Admin: 10/17/23 03:55 Dose: 25 mcg Nifedipine (Nifedipine 10 Mg Capsule) 10 - 20 mg PO Q20M PRN; Protocol PRN Reason: SBP> or= 160 OR DBP> or= 110 Ondansetron HCl (Ondansetron 4 Mg/2 Ml Vial) 4 mg IVP Q4HR PRN PRN Reason: Nausea / Vomiting Oxytocin (Oxytocin 10 Unit/Ml Vial) 10 unit IM .ONCE PRN PRN Reason: Step One if no IV access. Sodium Chloride (Sodium Chloride Flush 0.9% 10 Ml Syringe) 10 ml IVP Q8H JUNO Sodium Chloride (Sodium Chloride Flush 0.9% 10 Ml Syringe) 10 ml IVP PRN PRN PRN Reason: NEEDED PER PROVIDER ORDERS Terbutaline Sulfate (Terbutaline 1 Mg/Ml Vial) 0.25 mg SUBQ .ONCE PRN PRN Reason: Tachystole Aspirin EC [Ecotrin] 1 tab PO DAILY 04/29/23 NIFEdipine [Nifedipine ER] 1 tab PO DAILY 04/29/23 Ondansetron HCl 4 mg PO DAILY PRN 04/29/23 Pnv No.95/Ferrous Fum/Folic AC [ Tablet] 1 tab PO DAILY 04/29/23 Allergies/Adverse Reactions: Allergies Allergy/AdvReac Type Severity Reaction Status Date / Time metoclopramide AdvReac Anxiety Verified 04/29/23 14:38 Anes History & Medical History - Anesthetic History Anesthesia Complications: reports: No previous complications Family history of Anesthesia Complications: Denies Family history of Malignant Hyperthermia: Denies - Medical History Cardiovascular: reports: Hypertension Pulmonary: reports: None Gastrointestinal: reports: None Urinary: reports: None Neuro: reports: Headaches Musculoskeletal: reports: None Endocrine/Autoimmune: reports: None Blood Disorders: reports: Anemia Skin: reports: Eczema, Rosacea Smoking Status: Never smoker Psychosocial: reports: No issues indicated History of Cancer?: No - Surgical History General: reports: Cholecystectomy Eyes Ears Nose Throat (EENT): reports: Tonsil/Adenoidectomy - Obstetrical History : 5 Parity: 2 Exam General: Alert, Oriented x3, Cooperative Dental: WNL Mouth Openin Fingerbreadth Neck Mobility: Normal Mallampati classification: II Thyromental Distance: 4-6 cm Respiratory: Lungs clear Cardiovascular: Regular rate Plan Anesthesia Type: Epidural Consent for Procedure(s) Verified and Reviewed: Yes Code Status: Attempt Resuscitation ASA classification: 2-Mild systemic disease Is this case an emergency?: No
[2023-10-17] MEDS ORDERED: LIDOCAINE 2%-EPI 1:100000 20 ML MDV ONE (14:08)
[2023-10-17] MEDS ORDERED: ROPIVACAINE 0.2% 200 MG/100 ML BAG EP ONE (14:08)
--- NOTE | 2023-10-17 14:57 | PROVIDER PROGRESS NOTE ---
Progress Note just got epidural. baby's tracing looks great. contractions still irregular. on pitocin at 8 mu. cervix 360/-2 AROM and clear fluid. a/p induction progressing. anticipate in a few hours.
[2023-10-17] MEDS ORDERED: NALBUPHINE 10 MG/ML AMP IVP PRN (15:29)
[2023-10-17] MEDS ORDERED: METOCLOPRAMIDE 10 MG/2 ML VIAL IVP PRN (15:29)
[2023-10-17] MEDS ORDERED: ROPIVACAINE 0.2% 200 MG/100 ML BAG EP PRN (15:29)
[2023-10-17] MEDS ORDERED: NALOXONE 0.4 MG/ML VIAL IVP PRN (15:29)
[2023-10-17] MEDS ORDERED: LACTATED RINGERS 500 ML IV ONE (15:29)
[2023-10-17] MEDS ORDERED: ePHEDrine 50 MG/ML VIAL IVP PRN (15:29)
[2023-10-17] MEDS ORDERED: diphenhydrAMINE INJ 50 MG/ML VIAL IVP PRN (15:29)
[2023-10-17] MEDS ORDERED: ONDANSETRON 4 MG/2 ML VIAL IVP PRN (15:29)
--- NOTE | 2023-10-17 18:18 | PROVIDER PROGRESS NOTE ---
Progress Note per RN still only 3 cm at 5:30 or so. pitocin up to 12. getting more regular. about q 3. fht cat 1. comfortable with epidural. anticipate . scds for DVT prophylaxis. gbs neg
[2023-10-17] MEDS ORDERED: oxyCODONE 5 MG TABLET PO PRN (20:46)
--- NOTE | 2023-10-17 20:52 | DELIVERY NOTE ---
Delivery Note - Labor Labor: positive: Induced by oxytocin, Other (misoprostol first) - Delivery Method Infant Delivery Method: positive: Spontaneous vaginal delivery - Cervical Ripening Method Cervical Ripening Method: positive: Misoprostil - Presentation Presentation: positive: Vertex - Nuchal Cord Nuchal Cord: positive: None - Anesthetic Anesthetic Type: - Amniotic Fluid Description Amniotic Fluid Description: positive: Clear - Episiotomy Type Episiotomy Type: positive: None - Laceration Laceration: positive: None - Delivery Outcome Delivery Outcome: positive: Livebirth - [place]: positive: Placed in direct skin contact with mother sex: positive: Male - Cord Cord: positive: 3 vessels - Placenta Placenta: positive: Intact - Estimated Blood Loss Estimated Blood Loss (in cc): 300 - Post Delivery Events Post Delivery Events: positive: No post delivery events - Delivery Comments (Free Text/Narrative) Delivery Comments (Free Text/Narrative): patient's labor induced at term when found to have oligohydramnios on ultrasound. miso x 3 then oxytocin. epidural and very numb. baby always cat 1. nurse was looking for hearttones and found baby on bed between mom's legs and called for help. baby placed up on mom and dried. after a few minutes, cord clamped and cut by dad. Placenta delivered spontaneously. uterus contracted well. pitocin in IV. no lacerations noted on exam. no complications. baby vigorous and happy.
[2023-10-17] MEDS ORDERED: LACTATED RINGERS 1,000 ML IV SCH (21:00)
[2023-10-18] MEDS: ACETAMINOPHEN 325 MG TABLET PO PRN ×2 (01:45→06:12)
[2023-10-18] MEDS: IBUPROFEN 600 MG TABLET PO SCH ×3 (01:46→15:38)
--- NOTE | 2023-10-18 13:21 | DISCHARGE SUMMARY ---
Discharge Summary Admit Date: 10/16/23 Discharge Date: 10/18/23 Discharging Provider: Jaycee Kaminski MD Code Status: Attempt Resuscitation Condition at Discharge: Good Discharge Disposition: 01 Home, Self Care - DIAGNOSES Admission Diagnoses: oligohydramnios at term. labor induced and vaginal delivery. - HPI History of Present Illness: found to have oligohydramnios. admitted for induction. - HOSPITAL COURSE Hospital Course: went into labor with misoprostol. and then pitoin. epidural. vaginal delivery in bed without any pushing. 3709 grams. male. Apgars 8/9head circumference 34.5 cm. no lacerations. post course was unremarkable and she was discharged home on pp day 1. - ALLERGIES Allergies/Adverse Reactions: Allergies Allergy/AdvReac Type Severity Reaction Status Date / Time metoclopramide AdvReac Anxiety Verified 04/29/23 14:38 - MEDICATIONS Home Medications: Ambulatory Orders Medication Instructions Recorded Confirmed Aspirin EC [Ecotrin] 1 tab PO DAILY 04/29/23 04/29/23 NIFEdipine [Nifedipine ER] 1 tab PO DAILY 04/29/23 04/29/23 Ondansetron HCl 4 mg PO DAILY PRN 04/29/23 04/29/23 Pnv No.95/Ferrous Fum/Folic AC 1 tab PO DAILY 04/29/23 04/29/23 [ Tablet] Acetaminophen [Tylenol] 650 mg PO Q4HR PRN #120 tab 05/01/23 Docusate Sodium 100Mg Capsule 100 - 200 mg PO BID PRN #60 cap 07/23/23 [Colace 100Mg Capsule] - PHYSICAL EXAM AT DISCHARGE General Appearance: positive: No acute distress Abdomen: positive: Non-tender - LABS Result Diagrams: 10/16/23 17:50 10/16/23 17:50 - FOLLOW UP [facility] - TIME SPENT Time Spent in Discharge (Minutes): 15
--- NOTE | 2023-10-18 13:23 | Discharge Plan ---
Discharge Plan Problem Reviewed?: Yes Disposition: Home, Self Care Diet: Regular Activity Restrictions: Additional Comments Shower Restrictions: No Driving Restrictions: No No Smoking: If you smoke, Please STOP! Call for help.
[2023-10-18 16:57] VITALS: BP 118/63; O2SAT 98
--- NOTE | 2023-10-18 22:43 | Labor Flowsheet ---
Labor Flowsheet Datetime Report Generated by CPN: 10/18/2023 22:43 Datetime: 10/18/2023 16:50 VITAL SIGNS NBP Sys/Antonia/Mean (mmHg): 118 : 63 : 73 Pulse: 97 LaborFlag: Labor Datetime: 10/17/2023 22:00 Respirations: 16 SpO2 (%): 98 PAIN Pain Scale: 0 Datetime: 10/17/2023 21:30 Pain Presence: None/Denies Datetime: 10/17/2023 21:04 Temperature (C): 37.1 Temperature Route: Oral Datetime: 10/17/2023 19:57 Epidural Procedure Other: Cath Removed Anesthesia Comments: tip intact Datetime: 10/17/2023 19:56 VAGINAL EXAM Dilatation (cm): 10.0 Effacement (%): 10 Datetime: 10/17/2023 19:52 ANESTHESIA Anesthesia Plans: Epidural Anesthesia Level Check: T10- Umbilicus Datetime: 10/17/2023 19:47 UTERINE ACTIVITY Monitor Mode: External Frequency (min): 1-3 Quality: Strong Duration (sec): 40-60 Pattern: Normal: <= 5 Contractions in 10 Minutes Resting Tone (Palpate): Relaxed Pitocin Checklist: At Least 1 Acceleration of 15 bpm x 15 Seconds in 30 Minutes or Adequate Variabi lity; No More than 1 Late Deceleration Occurred in Past 30 Minutes; No More than 2 Variable Decelerat ions > 60 Seconds in Duration and decreasing >60 bpm in 30 minutes; No More than 5 Uterine Contractio ns in 10 Minutes for any 20 Minute Interval; Uterus Palpates Soft between Contractions FHR Baseline Rate : 145 FHR Baseline Changes: No Baseline Change Variability: Moderate 6-25 bpm Accelerations: 15X15 Decelerations: Variable Category: Category II MATERNAL ASSESSMENT Level of Consciousness: Alert DTR's/Clonus: DTRs 1+ Headache: Denies Nausea/Vomiting: Denies RUQ Epigastric Pain: Denies Datetime: 10/17/2023 19:35 Monitor Interventions for UA: [place] Adjusted Amniotic Fluid Color: Clear Amniotic Fluid Amount: Scant Datetime: 10/17/2023 19:34 COMMUNICATION Communication: Provider at Bedside Notification Reason: Labor Status Datetime: 10/17/2023 19:14 Patient Position/Activity: Left Lateral Datetime: 10/17/2023 19:12 Provider Notified (Name): Dr Kaminski Communication Comments: on her way in Datetime: 10/17/2023 19:08 Station: -2 Datetime: 10/17/2023 19:00 Oxygen Method: Room Air Datetime: 10/17/2023 18:45 ASSESSMENT A Monitor Mode: Telemetry Datetime: 10/17/2023 18:29 Patient Care Comments: knee high scd applied Datetime: 10/17/2023 18:27 MEDICATIONS Pitocin (milliunits): Increased to @ 16 Datetime: 10/17/2023 17:28 Stage of : Labor Datetime: 10/17/2023 17:20 Exam by: víctor jair rnc Vaginal Bleeding: None Cervix, Consistency: Soft Cervix, Position: Posterior Datetime: 10/17/2023 17:15 Pain Assessment Comments: pt feeling more pressure Datetime: 10/17/2023 16:22 I/O Interventions: Dye Cath Inserted Datetime: 10/17/2023 16:00 Contraction Comments: unable to assess Datetime: 10/17/2023 14:45 Membrane Status: Ruptured Membranes Rupture Method: Artificial Datetime: 10/17/2023 14:29 Comments: sitting up for epidural unable to assess Datetime: 10/17/2023 14:23 Epidural Procedure: Test Dose Datetime: 10/17/2023 14:19 PROCEDURE TIME OUT Procedure Verify: Correct Patient Identity; Correct Side and Site are Marked; Accurate Procedure Co nsent Form; Agreement on Procedure to be Done; Correct Patient Position; Addressed Need to Administer Antibiotics or Fluids for Irrigation; Safety Precautions Based on Patient History or Medication Use Epidural Positioning: Sitting Datetime: 10/17/2023 14:15 Monitor Interventions for FHR: Ultrasound Adjusted Datetime: 10/17/2023 14:05 PATIENT CARE IV/Blood Work: IV Bolus Started Datetime: 10/17/2023 12:36 Comfort Measures: Back Rub Given Datetime: 10/17/2023 12:30 Pain Coping: Breathing Through Contractions Datetime: 10/17/2023 03:55 Cervical Ripening Agents: Cytotec @ Medication Comments: buccal Datetime: 10/17/2023 03:51 Vaginal Exam Comments: Patient consent obtained prior to SVE. Datetime: 10/17/2023 00:24 Pain Type: Cramping Pain Location: Abdomen Pain Goal: 3 Datetime: 09/03/2023 16:54 Membranes Ruptured Date/Time: 10/17/2023 14:45
== END 2023-10-18 21:45 | disposition home or self-care (01) | DRG 807 ==
LOC: WFO 15:29 → FBP 15:31 → WFO 18:39 → FBP 18:40 → WFO 10-17 07:15 → FBP 10-17 07:15 → UNDOADMIN 10-17 07:17 → FBP 10-17 07:17
PROVIDERS: ADMIT Obstetrics & Gynecology; ATTEND Obstetrics & Gynecology
PROC: 3E0P7VZ Introduction of Hormone into Female Reproductive, Via Natural or Artificial Opening (ICD-10-PCS; 2023-10-16)
PROC: 10E0XZZ Delivery of Products of Conception, External Approach (ICD-10-PCS; principal; 2023-10-17)
PROC: 3E033VJ Introduction of Other Hormone into Peripheral Vein, Percutaneous Approach (ICD-10-PCS; 2023-10-17)
PROC: 10907ZC Drainage of Amniotic Fluid, Therapeutic from Products of Conception, Via Natural or Artificial Opening (ICD-10-PCS; 2023-10-17)
DX: O41.03X0 Oligohydramnios, third trimester, not applicable or unspecified (principal); Z37.0 Single live birth; O99.02 Anemia complicating childbirth; O99.344 Other mental disorders complicating childbirth; F32.A Depression, unspecified; F41.9 Anxiety disorder, unspecified; Z3A.39 39 weeks gestation of pregnancy; O99.214 Obesity complicating childbirth; O99.892 Other specified diseases and conditions complicating childbirth; R51.9 Headache, unspecified; O09.93 Supervision of high risk pregnancy, unspecified, third trimester; O21.9 Vomiting of pregnancy, unspecified; Z87.59 Personal history of other complications of pregnancy, childbirth and the puerperium
CPT/HCPCS: 36415; 59409; 76816; 76819; 80053; 85025; 86850; 86900; 86901; 99215; A9270; J7120; 59025; 86592